=== PATIENT | female | born 2000 | race Caucasian/White ===

== ENCOUNTER → 2021-04-04 08:14 | Outpatient (BNVA) | payer MEDICAID, SELFPAY | PROVIDERS: Family Provider Family Medicine; Visit Provider Nurse Practitioner Women's Health | DX: N92.6 Irregular menstruation, unspecified (principal) | CPT/HCPCS: 81025 ==

== ENCOUNTER → 2021-04-08 13:56 | Outpatient (BNVA) | payer MEDICAID, SELFPAY | PROVIDERS: Family Provider Family Medicine; Visit Provider Nurse Practitioner Women's Health | DX: O20.9 Hemorrhage in early pregnancy, unspecified (principal) | CPT/HCPCS: 84702 ==

== ENCOUNTER → 2021-04-10 09:45 | Outpatient (BNVA) | payer MEDICAID, SELFPAY | PROVIDERS: Family Provider Family Medicine; Visit Provider Nurse Practitioner Women's Health | DX: O20.9 Hemorrhage in early pregnancy, unspecified (principal) | CPT/HCPCS: 84702 ==

== ENCOUNTER 2021-04-11 15:53 | Outpatient (CLI) | payer MEDICAID, SELFPAY ==
--- NOTE | 2021-04-11 15:00 | USR_ITS ---
PROCEDURE INFORMATION: Exam: US , Transvaginal Exam date and time: 04/11/2021 3:00 PM Age: 20 years old Clinical indication: complicated by abdominal or pelvic pain; Left lower quadrant; First trimester; Gestational age or lmp: N/a; ; Additional info: O20.0 - threatened , transvaginal scan only TECHNIQUE: Imaging protocol: Real-time transvaginal obstetrical ultrasound of the maternal pelvis with image documentation. Transvaginal imaging was used for better evaluation of the fetus, adnexa, and/or cervix. COMPARISON: US OB >14 Weeks 85049 09/09/2015 2:56 PM FINDINGS: Gestation: Negative for intrauterine , patient remains at risk for ectopic please correlate clinically. US/US OB transvaginal 61340 IMPRESSION: Negative for intrauterine , patient remains at risk for ectopic please correlate clinically.
[2021-04-11 16:28] LABS: Hematocrit 40.4 % (37.0-47.0); Mean Corpuscular HGB Conc 34.7 g/dL (30.0-36.0); Mean Corpuscular Hemoglobin 29.2 pg (28.0-34.0); Mean Corpuscular Volume 84.3 fL (81-99); Mean Platelet Volume 9.9 fL (7.4-10.4); Platelet Count 247 10^3/cmm (130-400); Red Blood Count 4.79 10^6/uL (4.1-5.3); Red Cell Distribution Width 12.1 % (12.1-15.1); White Blood Count 9.9 10^3/uL (4.0-10.0)
== END 2021-04-11 15:54 | disposition home or self-care (01) ==
PROVIDERS: Visit Provider Nurse Practitioner Women's Health
DX: O20.0 Threatened abortion (principal)
CPT/HCPCS: 76817; 85027; 86850; 86900

== ENCOUNTER → 2021-04-15 11:53 | Outpatient (BNVA) | payer MEDICAID, SELFPAY | PROVIDERS: Visit Provider Nurse Practitioner Women's Health | DX: O20.0 Threatened abortion (principal) | CPT/HCPCS: 84702 ==

== ENCOUNTER → 2021-04-16 13:17 | Outpatient (BNVA) | payer MEDICAID, SELFPAY | PROVIDERS: Visit Provider Obstetrics & Gynecology | DX: O00.90 Unspecified ectopic pregnancy without intrauterine pregnancy (principal); A64 Unspecified sexually transmitted disease | CPT/HCPCS: 80053; 85025; 87491; 87591; 87635 ==

== ENCOUNTER 2021-04-17 07:52 | Day surgery (SDC) | payer MEDICAID, SELFPAY ==
[2021-04-16 15:44] VITALS: BMI 29.0
[2021-04-17] VITALS (11 sets, daily range): BP systolic 105–128; BP diastolic 54–75; PULSE 62–123; RESP 16–18; TEMP 36.1–37.2; O2SAT 93–99
--- NOTE | 2021-04-17 07:40 | P.ANESASSM_ITS ---
Pre-Anesthetic Assessment Pre-Anesthetic Assessment: Height/Weight: Height 1.73 m Weight 86.636 kg Proposed Procedure: Operation Date: 04/17/21 09:00 Proposed Procedures p Laparoscopic partial Salpingectomy 60084 O00.90(Not Applicable) - Zhane English MD Was Beta Jose taken within 24 hours: N/A Was Clonidine taken within 24 hours: N/A Social: Social History: No alcohol and No tobacco Exam: Pre-Anes Outpt Exam: alert, oriented x 3, clear to auscultation bilaterally and regular rate & rhythm Airway: Submandibular: WNL Cervical ROM: WNL MP: 2 History/ROS: No significant history except as noted Pulmonary: Pulmonary: None reported CV/HEM: CV/HEM: None reported : : None reported Hepatic: Hepatic: None reported GI: GI: None reported Metabolic: Metabolic: None reported Musc/skel: Musc/skel: None reported Neuropsych: Neuropsych: None reported Anesthetic Plan: ASA status: 1 Anesthesia: General PFSH Anesthesia PFSH: Medical History No pertinent past medical history Denies diabetes, asthma, hypertension, seizures, DVT/PE PCP: None Surgical History Hx of section X 2 2015 2017---per patient report after second she was told she has a lot of scar tissue. Family History Denies family history of Colon cancer Ovarian cancer Diabetes Heart disease Hypercholesteremia Breast cancer Hypertension Uterine cancer Thyroid disease Stroke Female Reproductive History: Date of last menstrual period: 02/09/21 Data Anesthesia Cardiac Studies: No Data to Display
[2021-04-17] MEDS: sodium chloride 0.9% 1,000 ML 30 ML IV (08:45)
--- NOTE | 2021-04-17 09:37 | W.PM.OPSUD ---
Surgery/Procedure H&P Update DATE OF PROCEDURE: April 17, 2021 DATE H&P PERFORMED: 04/16/21 H&P UPDATE INFORMATION: I have reviewed H&P completed within last 30 days, I have examined patient prior to procedure, No changes to prior documentation and H&P is in [facility] E[facility] on date indicated PREOP DIAGNOSIS: Ectopic PLANNED PROCEDURE: Operation Date: 04/17/21 09:00 Proposed Procedures p Laparoscopic partial Salpingectomy 61118 O00.90(Not Applicable) - Zhane Miller MD
[2021-04-17] MEDS: silver nitrate applicator 1 EACH TOPICAL (11:30)
--- NOTE | 2021-04-17 11:47 | PM.OP ---
Operative Report Date of procedure: April 17, 2021 OPERATIVE REPORT Date of surgery: 04/17/2021 Date of dictation: 04/17/2021 Preoperative diagnosis: Unruptured left ectopic Postoperative diagnosis/findings: unruptured left fimbrial ectopic , dense adhesions of uterus on the anterior abdominal wall, dense omental adhesions 8 weeks size anteverted uterus, adhesions of the left fallopian tube onto pelvic sidewall, adhesions of the right ovary onto ovarian fossa, normal-appearing external right fallopian tube Procedure done: Laparoscopic left salpingectomy with lysis of adhesions. Specimens removed/disposition of specimens: Left fallopian tube with ectopic Surgeon: Dr. Zhane Rod Force Dispatcher: Ceci Weber Anesthesia: General endotracheal tube anesthesia Estimated blood loss: 30 ml Intravenous fluids: 1200 mL of LR Urine output: 200 mL of clear urine at the end of procedure Medications: As per anesthesia records Complications: None, patient was extubated and taken to the recovery room in a stable condition. PROCEDURE: After consents were signed patient was taken to the operating room where she was placed under general anesthesia without any difficulty. She was placed supine on the table in the lithotomy position. Exam under anesthesia revealed findings noted above. She was then prepped and draped in usual sterile fashion. Weighted speculum and anterior wall retractors were placed in the vagina, cervix visualized and grasped with a tenaculum. ZUMI uterine manipulator was placed into the uterus without any difficulty. Catheter was placed, instruments were removed from the vagina and the legs were lowered. Attention was turned towards the abdomen where local anesthetic was injected in to her umbilicus. A 10 mm skin incision was made and a 10 mm port was placed through the umbilicus using an open technique--- fascia was identified and tented up with Denia clamps and directly incised using curved Mayos. Peritoneum was then bluntly entered digitally and palpation revealed adhesions in the lower abdomen but not around site of entry. Rodney trocar was then attached to the fascia and inflated. Once intra-abdominal entry was confirmed gas was turned on and intra-abdominal opening pressure was 2. The abdomen is insufflated to the pressure was 14. Survey of the abdomen revealed dense omental adhesions in the lower abdomen as well as adhesions of the anterior abdominal wall to the uterus. Bladder was also densely adherent onto the uterus. The uterus was almost immobile with these adhesions and was difficult to manipulate even with the ZUMI device.. Unruptured left fimbrial ectopic identified. Right tube appeared normal. Right ovary appeared normal but was adherent to the ovarian fossa. Left ovary was normal. Left fallopian tube was adherent to the pelvic sidewall. Two 5 mm trocar was placed into the left and right lower quadrant under direct visualization after injecting local anesthetic. The cautery device was first used to clamp cauterize and then cut the omental adhesions. About 10 minutes was spent with adhesiolysis. The Voyant device was used to clamp, cauterize and then cut the mesosalpinx under the left fallopian tube starting at the fimbriated end and moving towards the uterus. This was done in a sequential fashion in such a way that the entire fallopian tube including the ectopic was from the sidewall. This was continued to beyond the ectopic site. There was just 1 cm of the fallopian tube left behind near the cornual end of the uterus. Care was taken to stay off the pelvic sidewall to protect the ureter. Site of surgery was irrigated and was noted to be hemostatic with 0 abdominal pressure. Hemostasis was noted at site of surgery and site of adhesiolysis. An Endo Catch bag was inserted through the umbilical port and the tube with ectopic was placed in it. Lateral trochars were removed under direct visualization. The umbilical Rodney trocar was deflated and removed completely along with the Endo Catch bag. The Endo Catch bag was visualized and contents intact and was sent to pathology labeled left fallopian tube with ectopic . Peristalsis of the ureter was noted. No bleeding was noted at sites of surgery.. All instruments removed from the abdomen and the abdomen was desufflated. The fascia on the umbilical port was closed with 0 Vicryl in a continuous fashion and good reapproximation was obtained-care was taken to tent up the fascia throughout the closure. The skin incisions was closed with 4-0 Monocryl in a subcuticular fashion good reapproximation and hemostasis was noted. The incisions were dressed with Steri-Strips Telfa and Tegaderm. The ZUMI and Mark catheter were removed and good hemostasis after silver nitrate use was noted. The patient was extubated without any difficulty and taken to the recovery room in a stable condition. FOLLOW UP: Follow-up in 2 weeks and 6 weeks with surgeon MEDICATION ON DISCHARGE: Colace 100 mg by mouth every 12 hours when necessary constipation, 30 tablets, no refills Ibuprofen 800 mg by mouth every 8 hours when necessary pain, 60 tablets, no refills. [place] 5/325 mg 1 tablet by mouth every 6 hours when necessary pain,25 tablets, no refills Continue other home medication DISPOSITION: Home in a stable condition This documentation was created by [employer]itrack theoretical physicist software (known for inherent theoretical physicist error). Every effort was made to assure accuracy of theoretical physicist. Any obvious errors or omissions should be clarified with the author of the document. Pre-op Diagnosis: Ectopic History History History 3 Term 2 Miscarriages/Ectopic 1 0 Living Children 2 Other History: 3, para 2001 CD x 2 Left fallopian tube ectopic 1 1--> 01/23/2016, male (Rosas) 7lbs 12 oz, 40 weeks gestation,emergency delivery d/t non-reassuring heart tones, no complications with or delivery, delivered by Dr. Fernandez at [facility] in [place], [place]. 2--> 01/31/2018, female (Brittni) 8lbs 3oz, 39 weeks gestation, repeat delivery, no complications with or delivery, delivered at [place], [place]. 3--> 04/2021. Left ectopic [place] with [place] [facility] [place] Dense adhesions of the bladder onto the uterus and the uterus was adherent to the anterior abdominal wall. These adhesions were not taken down. Filmy omental adhesions noted and these were taken down. 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 Status post laparoscopy 04/17/2021---laparoscopic left partial [place] Dr. [place] [facility] Dense adhesions of the bladder onto the uterus and the uterus was adherent to the anterior abdominal wall. Ovary was adherent on the right side ovarian fossa but fallopian tube was normal. Left fallopian tube was adherent to the pelvic sidewall but left ovary was normal. Family History Denies family history of Colon cancer Ovarian cancer Diabetes Heart disease Hypercholesteremia Breast cancer Hypertension Uterine cancer Thyroid disease Stroke Supplemental [facility] Information - Tobacco Use: Started smoking at age 12 and currently smokes one pack per day. 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 [facility] Appointment: Never per patient Other Female Reproductive History Menstrual History Comment: Menarche at the age of 10 with regular 30-day cycles lasting for 7 days. Sexual History Sexual History Comment: Coitarche at age 10, more than 5 lifetime partners, has been with current partner, Luan, since 01/2020. STD History Comment: Denies STDs, incuding herpes or partner with herpes Contraception Contraception History Comment: Patient has used oral contraceptives, Nexplanon and Depo Provera in the past for contraception. She used the Nexplanon from the of her last child in 2017 until January 2021 when she removed it after 3 years. She states that she used control pills for about 1 month but had nipple discharge and thought she was so she stopped taking it. She had a cycle in 02/2021----got after that ----We will talk about contraception after dealing with this
[2021-04-17] MEDS: fentaNYL 50 mcg/mL INJ 2mL IVP (11:52)
[2021-04-17] MEDS: HYDROmorphone 1 mg/mL INJ 1 mL 0.5 MG IVP (11:57)
[2021-04-17] MEDS: HYDROcodone-acetaminophen 5-325 mg Tablet 1 TAB PO (13:20)
--- NOTE | 2021-04-17 15:09 | ANE.PACU2 ---
Inpatient post-anesthesia follow up: Airway intact: Yes Vital signs: Temperature 97 F Pulse Rate 66 Respiratory Rate 18 Blood Pressure 116/54 Pulse Oximetry 98 Oxygen Delivery Me thod Room Air Oxygen Flow Rate Fraction of Inspir ed Oxygen Hydration adequate: Yes Nausea and vomiting: No Pain level: 4 Mental status: Baseline
== END 2021-04-17 13:45 | disposition home or self-care (01) ==
PROVIDERS: Visit Provider Obstetrics & Gynecology
PROC: (CPT 58661; principal; 2021-04-17 09:00)
DX: O00.102 Left tubal pregnancy without intrauterine pregnancy (principal); Z3A.00 Weeks of gestation of pregnancy not specified
CPT/HCPCS: 59151; 36415; 86850; 86900; 88305; J1100; J1170; J2405; J2704; J2710; J3010; J3490; J7030

== ENCOUNTER 2022-05-28 05:09 | Inpatient (IN) | payer MEDICAID, SELFPAY ==
--- NOTE | 2022-05-13 10:27 | ANES.PREANE2 ---
Pre-Anesthetic Assessment Height/Weight: Height 1.73 m Preop Diagnosis: Ectopic Operation Date: 05/28/22 07:00 Proposed Procedures p Section Repeat(Not Applicable) - Aaron Hensley MD Familial anesthetic complications: None Was Beta Jose taken within 24 hours: N/A Was Clonidine taken within 24 hours: N/A Social Tobacco and No alcohol Exam alert, oriented x 3 and regular rate & rhythm Airway Submandibular: within normal limits Cervical ROM: within normal limits Mallampati: Class II Dentition: chipped Comments: Comments: Poor dentition, multiple caries Anesthetic Plan ASA status: 2 Anesthesia: Regional (specify below) (SAB) Medications/Allergies Home Medications Medication Instructions Recorded Confirmed Last Taken Type docusate sodium 100 mg capsule 100 mg PO BID PRN constipation #30 04/17/21 Unknown Rx caps hydrocodone 5 mg-acetaminophen 325 1 tab PO Q6H pain #25 tabs 04/17/21 Unknown Rx mg tablet ibuprofen 800 mg tablet 800 mg PO Q8H pain #30 tabs 04/17/21 Unknown Rx Allergies Allergy/AdvReac Type Severity Reaction Status Date / Time amoxicillin Allergy Severe throat Verified 04/16/21 12:19 swelling--never tried Keflex Penicillins Allergy Severe throat Verified 04/15/21 12:05 swelling PFSH Anesthesia Medical History (Updated 04/17/21 @ 11:55 by Zhane Miller MD) History of ectopic 2020 treated with salpingectomy No pertinent past medical history Denies diabetes, asthma, hypertension, seizures, DVT/PE PCP: None Surgical History (Updated 04/17/21 @ 11:55 by Zhane Miller MD) Hx of section X 2 2015 2017---per patient report after second she was told she has a lot of scar tissue. Status post laparoscopy 04/17/2021---laparoscopic left partial salpingectomy by Dr. Rod at [facility] [place]. Dense adhesions of the bladder onto the uterus and the uterus was adherent to the anterior abdominal wall. Ovary was adherent on the right side ovarian fossa but fallopian tube was normal. Left fallopian tube was adherent to the pelvic sidewall but left ovary was normal. Family History Denies family history of Colon cancer Ovarian cancer Diabetes Heart disease Hypercholesteremia Breast cancer Hypertension Uterine cancer Thyroid disease Stroke Female Reproductive History Date of last menstrual period: 02/09/21 Data Anesthesia Cardiac Studies: No Data to Display
[2022-05-28] VITALS (103 sets, daily range): BP systolic 96–131; BP diastolic 51–77; PULSE 51–109; RESP 16–18; TEMP 36.2–36.8; O2SAT 89–100; BMI 30.7
[2022-05-28 05:36] LABS: Basophils % 0.3 %; Eosinophils # 0.3 10^3/uL (0.0-0.8); Eosinophils % 1.7 %; Hematocrit 34.3 % (37.0-47.0); Hemoglobin 11.5 g/dL (11.5-15.3); Lymphocytes % 20.2 %; Mean Corpuscular HGB Conc 33.5 g/dL (30.0-36.0); Mean Corpuscular Hemoglobin 29.3 pg (28.0-34.0); Mean Corpuscular Volume 87.5 fl (81-99); Mean Platelet Volume 9.3 fL (7.4-10.4); Monocytes # 0.7 10^3/uL (0.2-0.9); Monocytes % 4.9 %; Neutrophils # 10.69 10^3/uL (1.8-7.7); Nucleated Red Blood Cells % 0 %; Platelet Count 259 10^3/cmm (130-400); Red Blood Count 3.92 10^6/uL (4.1-5.3); Red Cell Distribution Width 14.3 % (12.1-15.1); White Blood Count 14.8 10^3/uL (4.0-10.0)
[2022-05-28] MEDS: lactated ringers 1,000 ML 999 ML IV (05:38)
[2022-05-28] MEDS: famotidine 20 mg/2 mL INJ IVP (06:54)
[2022-05-28] MEDS: citric acid-sodium citrate 30 mL UDC PO (06:54)
[2022-05-28] MEDS: metoclopramide 5 mg/mL SDV 2 mL 10 MG IVP (06:54)
--- NOTE | 2022-05-28 06:55 | P.HPUD_ITS ---
Labor & Delivery H&P Update Date of Procedure: May 28, 2022 Date H&P Performed: 05/19/22 Changes to previous documentation: None Admission Diagnosis: 4 para 2-0-1-2 with an estimated gestational age of 39 weeks presenting for a repeat section Preop diagnosis: Ectopic Planned procedure: Operation Date: 05/28/22 07:00 Proposed Procedures p Section Repeat(Not Applicable) - Aaron Hensley MD Related Problem List Diagnoses (1) Hx of section: (2) 39 weeks gestation of : A&P Assessment and plan (1) Hx of section: We discussed options, and the patient would like to proceed with a section. We discussed the risks of bleeding, infection, and damage to intra- abdominal organs. She had no further questions Status: Acute X 2 2015 2017---per patient report after second she was told she has a lot of scar tissue. (2) 39 weeks gestation of : Status: Acute
[2022-05-28] MEDS: gentamicin inj 140 MG in sodium chloride 0.9% (100 ml) 100 ML 103.5 MG IV (07:04)
[2022-05-28] MEDS: clindamycin 900 MG/50 ML PREMIX 100 MG IV (07:04)
--- NOTE | 2022-05-28 07:57 | XR_ITS ---
WS: [id number], AP portable supine, 05/28/2022 Clinical Data: incorrect counts in surgery Comparison: None. Findings: No abnormal intraabdominal masses or calcifications are seen. There is no dilatated small bowel or ev idence of obstruction. No abnormal radiopaque foreign body is noted. There are transverse surgical nita across the pelvis . The upper abdomen is not included on the examination. There is a moderate amount of fecal material throughout the colon. XR/XR abdomen 1V* [id number] Impression: Negative for radiopaque foreign body in the lower abdomen and pelvis.
--- NOTE | 2022-05-28 08:02 | P.ANESASSM_ITS ---
Pre-Anesthetic Assessment Height/Weight: Height 1.73 m Weight 91.626 kg Pulse Resp BP O2 Del Method 88 16 109/63 05/28/22 06:33 05/28/22 05:21 05/28/22 06:33 05/28/22 05:16 Preop Diagnosis: Ectopic Operation Date: 05/28/22 07:00 Proposed Procedures p Section Repeat(Not Applicable) - Aaron Hensley MD Familial anesthetic complications: none Was Beta Jose taken within 24 hours: N/A Was Clonidine taken within 24 hours: N/A Social Tobacco and No alcohol Exam alert, oriented x 3 and regular rate & rhythm Airway Submandibular: within normal limits Cervical ROM: within normal limits Mallampati: Class II Dentition: chipped Comments: Comments: Very poor dentition, multiple caries and chipped Anesthetic Plan ASA status: 2 Anesthesia: Regional (specify below) (SAB) Medications/Allergies Home Medications Medication Instructions Recorded Confirmed Last Taken Type Pepcid 05/28/22 05/27/22 History 05/28/22 05/26/22 History Allergies Allergy/AdvReac Type Severity Reaction Status Date / Time amoxicillin Allergy Severe throat Verified 04/16/21 12:19 swelling--never tried Keflex Penicillins Allergy Severe throat Verified 04/15/21 12:05 swelling [facility] Anesthesia Medical History (Updated 05/28/22 @ 07:00 by Aaron Hensley MD) History of ectopic 2020 treated with salpingectomy No pertinent past medical history Denies diabetes, asthma, hypertension, seizures, DVT/PE PCP: None Surgical History (Updated 05/28/22 @ 07:00 by Aaron Hensley MD) Hx of section X 2 2015 2017---per patient report after second she was told she has a lot of scar tissue. Status post laparoscopy 04/17/2021---laparoscopic left partial salpingectomy by Dr. Rod at [facility] [place]. Dense adhesions of the bladder onto the uterus and the uterus was adherent to the anterior abdominal wall. Ovary was adherent on the right side ovarian fossa but fallopian tube was normal. Left fallopian tube was adherent to the pelvic sidewall but left ovary was normal. Family History Denies family history of Colon cancer Ovarian cancer Diabetes Heart disease Hypercholesteremia Breast cancer Hypertension Uterine cancer Thyroid disease Stroke Female Reproductive History Date of last menstrual period: 02/09/21 : 4 Data Anesthesia : 05/28/22 05:25 Short CBC 05/28/22 Range/Units 05:25 WBC 14.8 H (4.0-10.0) 10^3/uL Hgb 11.5 (11.5-15.3) g/dL Hct 34.3 L (37.0-47.0) % MCV 87.5 (81-99) fl Plt Count 259 (130-400) 10^3/cmm Neut % (Auto) 72.0 % Neut # (Auto) 10.69 H (1.8-7.7) 10^3/uL Blood Bank 05/28/22 05:25 Blood Type O Positive Rho(D) Type Positive Antibody Screen Negative Cardiac Studies: No Data to Display
--- NOTE | 2022-05-28 08:19 | P.OP_ITS ---
Operative Report Date of procedure: May 28, 2022 Pre-op diagnosis: Preop Diagnosis previous section desiring repeat Post-op diagnosis: Same Procedure done: Transverse section Specimens removed/disposition: 1. Female infant with Apgars of 8 and 9 and a weight of 6 pounds 8 ounces 2. Placenta with a three-vessel cord delivered intact Surgeon: Aaron Hensley Anesthesia: Other (Spinal) Estimated blood loss (mL): 500 Complications: None Condition: stable Procedure: The patient was brought back to the operating room where she was prepped and draped in usual sterile fashion. Anesthesia was found to be adequate. A lower transverse skin incision was then made with a #10 blade. I then dissected down to the underlying subcutaneous tissue until arriving at the prerectal fascia. The fascia was then nicked with the scalpel bilaterally. The fascial incisions were then carried laterally with Tao scissors. Attention was then turned to the superior aspect of the incision which was grasped with kochers and tented up away from the underlying rectus abdominis muscles. The muscles were then dissected away from the fascia manually, and later with Tao scissors. Attention was then turned to the inferior aspect of the incision, and the fascia was dissected away from the underlying muscle in similar fashion. The rectus abdominis muscles were then spread manually. The peritoneum was entered manually. Excellent visualization of the uterus was noted. A lower transverse uterine incision was then made with a #10 blade. Upon arriving at the intrauterine cavity, the uterine incision was then extended manually. The was noted to be in vertex position. The baby was delivered without difficulty. After delivery of the head, the mouth and nose were suctioned at the site of the incision. There was no meconium. There was no nuchal cord. The remainder of the body was then delivered and placed on the abdomen. The cord was cut and clamped. The baby was then handed to the waiting nurse. The placenta was removed intact. Because of extensive intraperitoneal scar tissue, I decided not to externalize the uterus. The intrauterine cavity was cleansed of any remaining debris. The uterine incision was reapproximated in 2 layers. The first layer was performed with 0 Vicryl in a running locked stitch. The second layer was an imbricating stitch also using 0 Vicryl. The uterus was replaced into the abdomen. The peritoneum was then irrigated with warm saline. I reexamined the uterine incision and found it to be hemostatic. The fascia was then reapproximated using 0 Vicryl in running stitch. The subcutaneous tissue was reapproximated using 0 Vicryl in a running stitch. The skin was reapproximated using nita. A sterile dressing was placed. All counts were correct x2. Bot h the mother and baby were in stable condition.
--- NOTE | 2022-05-28 12:38 | ANE.PACU2 ---
Inpatient post-anesthesia follow up: Airway intact: Yes Vital signs: Temperature 97.2 F Pulse Rate 81 Respiratory Rate 16 Blood Pressure 108/55 Pulse Oximetry 98 Oxygen Delivery Me thod Room Air Oxygen Flow Rate Fraction of Inspir ed Oxygen Hydration adequate: Yes Nausea and vomiting: No Pain level: 1 Mental status: Baseline
[2022-05-28] MEDS: dextrose 5%-lactated ringers 1,000 ML 125 ML IV (14:42)
[2022-05-28] MEDS: ketorolac 30 mg/mL INJ IVP ×2 (14:42→20:10)
[2022-05-28] MEDS: docusate sodium 100 mg Capsule PO (20:10)
[2022-05-28 20:41] LABS: Hematocrit 30.1 % (37.0-47.0); Hemoglobin 10.5 g/dL (11.5-15.3); Mean Corpuscular HGB Conc 34.9 g/dL (30.0-36.0); Mean Corpuscular Hemoglobin 29.5 pg (28.0-34.0); Mean Corpuscular Volume 84.6 fl (81-99); Mean Platelet Volume 9.4 fL (7.4-10.4); Platelet Count 208 10^3/cmm (130-400); Red Blood Count 3.56 10^6/uL (4.1-5.3); White Blood Count 15.4 10^3/uL (4.0-10.0)
[2022-05-29 01:29] VITALS: BP 103/55; PULSE 81; TEMP 36.8
[2022-05-29] MEDS: ketorolac 30 mg/mL INJ IVP ×2 (03:29→08:12)
--- NOTE | 2022-05-29 04:12 | PM.OBGYDC ---
Discharge Providers HANDKERCHIEF FOLDER Date of Admission: 05/28/22 05:09 Date of Discharge: 05/29/22 Attending Provider at Admission: aAron Hensley MD Attending Provider at Discharge: Aaron Hensley MD Primary Care Provider: Aaron Hensley MD Diagnoses at Discharge Discharge Diagnosis (1) Hx of section: Status: Acute Permanent problem details: X 2 2015 2017---per patient report after second she was told she has a lot of scar tissue. (2) 39 weeks gestation of : Status: Acute Reason for Visit Reason for Visit: edc 05/30/22 Anesthesia consult Hospital Course Hospital Course The patient presented to the hospital for a repeat section. The was unremarkable other than previously noted scar tissue. Her course was unremarkable. Her bleeding was within normal limits. She breast-fed well. She was passing flatus the same day as her surgery. As result her diet was advanced and she tolerated it without any difficulty Information Peripartum Data: Delivery Method: Physical Exam Narrative: She is in no acute distress Lungs are clear auscultation bilaterally Her heart has a regular rate and rhythm Her fundus is below the umbilicus and firm Her dressing is clean, dry and intact Her extremities have trace edema Urinary Catheter Management: Mark Latex: Cath Placed During This Visit: yes, but has since been removed by the nurse Reason for Continuing Indwelling Catheter: Decision to DC Catheter Urinary Catheter Date of Insertion: 05/28/22 Urinary Catheter Time of Insertion: 07:17 Date Urinary Catheter Removed: 05/28/22 Time Urinary Catheter Discontinued: 17:00 History History History 3 Term 2 0 Miscarriages/Ectopic 1 Living Children 2 Discharge Data Studies Completed and Pending Completed Studies During Hospitalization Category Date Time Status XR abdomen 1V* [id number] Stat Exams 05/28/22 07:57 Completed Radiology Impressions Abdomen X-Ray 05/28/22 07:57 Impression: Negative for radiopaque foreign body in the lower abdomen and pelvis. Laboratory Results WBC 15.4 10^3/uL (4.0-10.0) H 05/28/22 20:25 RBC 3.56 10^6/uL (4.1-5.3) L 05/28/22 20:25 Hgb 10.5 g/dL (11.5-15.3) L 05/28/22 20:25 Hct 30.1 % (37.0-47.0) L 05/28/22 20:25 MCV 84.6 fl (81-99) 05/28/22 20:25 MCH 29.5 pg (28.0-34.0) 05/28/22 20:25 MCHC 34.9 g/dL (30.0-36.0) 05/28/22 20:25 RDW 14.0 % (12.1-15.1) 05/28/22 20:25 Plt Count 208 10^3/cmm (130-400) 05/28/22 20:25 MPV 9.4 fL (7.4-10.4) 05/28/22 20:25 Neut % (Auto) 72.0 % 05/28/22 05:25 Lymph % (Auto) 20.2 % 05/28/22 05:25 [place] % (Auto) 4.9 % 05/28/22 05:25 Eos % (Auto) 1.7 % 05/28/22 05:25 Baso % (Auto) 0.3 % 05/28/22 05:25 Neut # (Auto) 10.69 10^3/uL (1.8-7.7) H 05/28/22 05:25 Lymph # (Auto) 3.0 10^3/uL (0.8-4.8) 05/28/22 05:25 [place] # (Auto) 0.7 10^3/uL (0.2-0.9) 05/28/22 05:25 Eos # (Auto) 0.3 10^3/uL (0.0-0.8) 05/28/22 05:25 Baso # (Auto) 0.0 10^3/uL (0.0-0.1) 05/28/22 05:25 Nucleated RBC % (auto) 0 % 05/28/22 05:25 Nucleated RBCs # 0.0 /100WBC 05/28/22 05:25 Blood Type O Positive 05/28/22 05:25 Rho(D) Type Positive 05/28/22 05:25 Antibody Screen Negative 05/28/22 05:25 Vitals Last Vital Signs Temp 98.2 F 05/29/22 01:29 Pulse 81 05/29/22 01:29 Resp 16 05/28/22 10:00 BP 103/55 05/29/22 01:29 Pulse Ox 96 05/28/22 15:15 O2 Del Method 05/28/22 08:48 Discharge Plan Discharge Patient Disposition: Home Condition: Stable Prescriptions: New ibuprofen 800 mg Tablet 800 mg PO TID Qty: 45 0RF hydrocodone-acetaminophen 5-325 mg Tablet 1 tab PO Q6H PRN (Reason: Moderate To Severe Pain) Qty: 28 0RF docusate sodium 100 mg Capsule 100 mg PO BID Qty: 20 0RF Continued Discontinued Pepcid Discharge Orders: Discharge Order (Routine); Ordered 05/29/22 Ordered By: Aaron Hensley Referrals: Aaron Hensley MD [Primary Care Provider] - 4-7 days (Please set up 6-week follow-up as well.) Discharge Diet: Usual diet Discharge Activity: Limit activity as instructed Patient Instructions: Depression (DC), Bleeding (DC), Preeclampsia and Eclampsia After Delivery (GEN), Hemorrhage (DC), OB - Ayden/Fei, OB Discharge Report, OB Food/Drug Interaction Guide, OB Care at Home, Opioid Safety, OB Home Care Discharge Attestations HANDKERCHIEF FOLDER Time Spent in Discharge Care*: less than 30 min Coding Level of Care Code Acute Car Porter for Chg Fwd Diagnoses Hx of section Z98.891 39 weeks gestation of Z3A.39
[2022-05-29] MEDS: docusate sodium 100 mg Capsule PO (08:13)
[2022-05-29] MEDS: prenatal vitamin Capsule 1 CAP PO (08:13)
[2022-05-29 10:00] VITALS: RESP 18
[2022-05-29 10:45] VITALS: RESP 18
== END 2022-05-29 10:50 | disposition home or self-care (01) | DRG 788 ==
PROVIDERS: Admitting Provider Family Medicine; PCP Family Medicine; Visit Provider Family Medicine
PROC: 10D00Z1 Extraction of Products of Conception, Low, Open Approach (ICD-10-PCS; CPT 59514; principal; 2022-05-28 07:00)
DX: O34.219 Maternal care for unspecified type scar from previous cesarean delivery (principal); Z3A.39 39 weeks gestation of pregnancy; Z37.0 Single live birth
CPT/HCPCS: 12345; 36415; 51702; 59409; 74018; 85025; 85027; 86850; 86900; J1580; J1885; J2274; J2370; J2405; J2765; J3490

== ENCOUNTER 2024-04-04 14:46 | Emergency (ER) | payer MEDICAID, SELFPAY ==
--- NOTE | 2024-04-04 14:51 | US_ITS ---
WS: [id number] Exam: US OB <= 14 weeks fetus [id number] Date/Time of Exam: 04/04/2024 2:58 PM Reason For Exam: threatened miscarriage No gestational sac or pole identified in the uterus. The uterus measures 7.5 x 4.3 x 5 cm. Endo metrial thickness is 8 mm. The RIGHT and LEFT ovaries are identified and are unremarkable. Both ovari es demonstrate satisfactory blood flow with color flow Doppler. The RIGHT ovary measures 3.67 x 1.4 x 1.8 cm. The LEFT ovary measures 2.17 x 2 x 3.2 cm. No adnexal mass or abnormal free fluid collection . US/US OB <= 14 weeks fetus [id number] IMPRESSION: 1. No gestational sac or pole identified in the uterus. 2. The ovaries are unremarkable and demonstrate normal perfusion. 3. No adnexal mass or abnormal fluid collection in the pelvis. 4. This exam would not exclude the possibility of ectopic .
[2024-04-04 14:54] VITALS: BP 131/82; PULSE 97; RESP 16; TEMP 36.6; O2SAT 98
[2024-04-04 15:46] LABS: Basophils % 0.3 %; Eosinophils # 0.2 10^3/uL (0.0-0.8); Eosinophils % 2.1 %; Hematocrit 39.8 % (36-47); Lymphocytes # 1.9 10^3/uL (0.8-4.8); Lymphocytes % 21.9 %; Mean Corpuscular HGB Conc 34.4 g/dL (30-55); Mean Corpuscular Hemoglobin 29.7 pg (27-33); Mean Corpuscular Volume 86.1 fl (85-98); Mean Platelet Volume 9.8 fL (7.4-10.4); Monocytes # 0.4 10^3/uL (0.2-0.9); Monocytes % 4.1 %; Neutrophils # 6.32 10^3/uL (1.8-7.7); Neutrophils % 71.4 %; Nucleated Red Blood Cells % 0 %; Platelet Count 250 10^3/cmm (157-399); Red Blood Count 4.62 10^6/uL (3.85-5.65); Red Cell Distribution Width 12.7 % (12.1-15.1); White Blood Count 8.86 10^3/uL (3.29-11.43)
[2024-04-04 16:22] LABS: Anion Gap 15.9 (5-19); Blood Urea Nitrogen 7 mg/dL (6-20); Carbon Dioxide 21 mmol/L (22-29); Chloride 104 mmol/L (98-107); Glomerular Filtration Rate 102.8 mL/min (90-130); Glucose 102 mg/dL (65-115); Osmolality Calculated 282 mOsm/kg (285-295); Potassium 3.9 mmol/L (3.5-5.1); Sodium 137 mmol/L (136-145)
[2024-04-04 16:29] VITALS: BP 142/72; PULSE 89; RESP 14; O2SAT 98
--- NOTE | 2024-04-04 16:47 | W.ED.PREGNAN ---
HPI - General: Chief complaint: Vaginal Bleeding Stated complaint: 6 weeks preg, abd pain, vaginal bleeding Time Seen by Provider: 04/04/24 16:12 History of Present Illness: 23-year-old female who presents emergency room with vaginal bleeding and cramping. She had some right-sided abdominal pain that she thought was just gas earlier but then she had some bleeding and so she became worried and came to the emergency room. She has now pain has resolved. Bleeding has resolved as well. Review of Systems Narrative: Constitutional symptoms: Negative except as documented in HPI. Skin symptoms: Negative except as documented in HPI. Eye symptoms: Negative except as documented in HPI. ENMT symptoms: Negative except as documented in HPI. Respiratory symptoms: Negative except as documented in HPI. Cardiovascular symptoms: Negative except as documented in HPI. Gastrointestinal symptoms: Negative except as documented in HPI. Genitourinary symptoms: Negative except as documented in HPI. Musculoskeletal symptoms: Negative except as documented in HPI. Neurologic symptoms: Negative except as documented in HPI. Psychiatric symptoms: Negative except as documented in HPI. Endocrine symptoms: Negative except as documented in HPI. [facility] ED PFSH: Medical History (Updated 05/30/22 @ 00:01 by SUNG Foy) History of ectopic 2020 treated with salpingectomy No pertinent past medical history Denies diabetes, asthma, hypertension, seizures, DVT/PE PCP: None Surgical History (Updated 05/30/22 @ 00:01 by SUNG Foy) Status post laparoscopy 04/17/2021---laparoscopic left partial salpingectomy by Dr. Rod at [facility]. Dense adhesions of the bladder onto the uterus and the uterus was adherent to the anterior abdominal wall. Ovary was adherent on the right side ovarian fossa but fallopian tube was normal. Left fallopian tube was adherent to the pelvic sidewall but left ovary was normal. Hx of section X 2 2015 2017---per patient report after second she was told she has a lot of scar tissue. Family History Denies family history of Colon cancer Ovarian cancer Diabetes Heart disease Hypercholesteremia Breast cancer Hypertension Uterine cancer Thyroid disease Stroke Physical Exam Narrative: EXAM NARRATIVE: General: Alert, no acute distress. Skin: Warm, dry. Head: Normocephalic, atraumatic. Neck: Supple, trachea midline. Eye: Extraocular movements are intact. Ears, nose, mouth and throat: mucosa moist. Cardiovascular: Regular, Normal peripheral perfusion. Respiratory: Lungs are clear to auscultation, respirations are non-labored, breath sounds are equal, Symmetrical chest wall expansion. Gastrointestinal: Soft, Nontender, Non distended Musculoskeletal: Normal ROM, no deformity. Neurological: Alert and oriented, No focal neurological deficit observed. Psychiatric: Cooperative, appropriate mood & affect. Course Vital Signs: Vital signs: Vital Signs Temperature 97.9 F 04/04/24 14:54 Pulse Rate 89 04/04/24 16:29 Respiratory Rate 14 04/04/24 16:29 Blood Pressure 142/72 04/04/24 16:29 Pulse Oximetry 98 04/04/24 16:29 Oxygen Delivery Me thod Room Air 04/04/24 14:54 MDM - OB/Uterine Contractions Medical Decision Making Medical decision making: Differential diagnosis including but not limited to and based on the above HPI, review of systems and physical exam: for patient in early with vaginal bleeding and abdominal pain: Spontaneous , threatened . Urinary tract infection. ectopic . Orders placed to evaluate differential diagnosis based on the above differential, HPI and physical exam Lab Review: Laboratory results were reviewed and interpreted by myself the emergency room physician. Review of old blood bank show she is a positive. RhoGAM not needed. No anemia. Beta-hCG is only around 600 which would indicate given her ultrasound either an extremely early or an early miscarriage. Ultrasound of the pelvis: No evidence of ectopic . No evidence of in the uterus. This was reviewed and interpreted by myself the emergency room physician. I also reviewed the radiology report. I reviewed the patient's medical record. Assessment and plan: Threatened miscarriage -Patient has establish care with a scuba diving teacher. We discussed that she needs to have repeat hCG and possibly repeat ultrasound in the next 5 to 7 days and to return the emergency room with pain returns or is worse - Discharged home - Discussed findings and plan with patient. Answered any questions. - All laboratory values were reviewed and interpreted personally by myself, the ER physician - All imaging was reviewed and interpreted personally by myself, the ER physician. - Evaluation and treatment of this problem were appropriate in the emergency setting Lab Data 04/04/24 15:29 04/04/24 15:29 Radiology Impressions Ultrasound 04/04/24 14:51 IMPRESSION: 1. No gestational sac or pole identified in the uterus. 2. The ovaries are unremarkable and demonstrate normal perfusion. 3. No adnexal mass or abnormal fluid collection in the pelvis. 4. This exam would not exclude the possibility of ectopic . Laboratory Results WBC 8.86 10^3/uL (3.29-11.43) 04/04/24 15: RBC 4.62 10^6/uL (3.85-5.65) 04/04/24 15: Hgb 13.70 g/dL (11.27-16.99) 04/04/24 15: Hct 39.8 % (36-47) 04/04/24 15: MCV 86.1 fl (85-98) 04/04/24 15: MCH 29.7 pg (27-33) 04/04/24: MCHC 34.4 g/dL (30-55) 04/04/24: RDW 12.7 % (12.1-15.1) 04/04/24 15: Plt Count 250 10^3/cmm (157-399) 04/04/24 15: MPV 9.8 fL (7.4-10.4) 04/04/24 15: Neut % (Auto) 71.4 % 04/04/24 15: Lymph % (Auto) 21.9 % 04/04/24: [place] % (Auto) 4.1 % 04/04/24: Eos % (Auto) 2.1 % 04/04/24: Baso % (Auto) 0.3 % 04/04/24 15:29 Neut # (Auto) 6.32 10^3/uL (1.8-7.7) 04/04/24: Lymph # (Auto) 1.9 10^3/uL (0.8-4.8) 04/04/24: [place] # (Auto) 0.4 10^3/uL (0.2-0.9) 04/04/24 15: Eos # (Auto) 0.2 10^3/uL (0.0-0.8) 04/04/24: Baso # (Auto) 0.0 10^3/uL (0.0-0.1) 04/04/24 15:29 Nucleated RBC % (auto) 0 % 04/04/24 15:29 Nucleated RBCs # 0.0 /100WBC 04/04/24 15:29 Sodium 137 mmol/L (136-145) 04/04/24 15:29 Potassium 3.9 mmol/L (3.5-5.1) 04/04/24 15:29 Chloride 104 mmol/L (98-107) 04/04/24 15:29 Carbon Dioxide 21 mmol/L (22-29) L 04/04/24 15:29 Anion Gap 15.9 (5-19) 04/04/24 15:29 BUN 7 mg/dL (6-20) 04/04/24 15: Creatinine 0.7 mg/dL (0.5-0.9) 04/04/24 15:29 GFR Calculation 102.8 mL/min (90-130) 04/04/24 15: Glucose 102 mg/dL (65-115) 04/04/24 15:29 Calculated Osmolality 282 mOsm/kg (285-295) L 04/04/24 15:29 Calcium 9.0 mg/dL (8.5-10.5) 04/04/24 15:29 Ser , Semi-Qnt 505.40 mIU/mL 04/04/24 15:29 All radiology interpretation(s) finalized by discharge Discharge Plan Discharge Patient Disposition: Home Condition: Stable Prescriptions: No Action ibuprofen 800 mg Tablet 800 mg PO TID Qty: 45 0RF hydrocodone-acetaminophen 5-325 mg Tablet 1 tab PO Q6H PRN (Reason: Moderate To Severe Pain) Qty: 28 0RF docusate sodium 100 mg Capsule 100 mg PO BID Qty: 20 0RF Discharge Orders: Discharge ED (Routine); Ordered 04/04/24 Ordered By: Priscilla Gonzales Referrals: Aaron Hensley MD [Primary Care Provider] - 4-7 days Discharge Diet: Usual diet Discharge Activity: Increase activity as tolerated Patient Instructions: Threatened Miscarriage (ED) Activity Restrictions/Additional Instructions: Return to the emergency room or follow-up with your property and casualty insurance agent if you have worsening pain or bleeding. Thank you for choosing [facility] for your healthcare needs today. Please realize this is an emergency room and that we are providing you with a medical screening exam and this may not be complete and all inclusive of all the testing and or work up that you may need to determine your ailment or severity of your illness. You have been screened and evaluated and felt safe for discharge. Health conditions do change or evolve sometimes and as such it is important that you follow up with your Primary Doctor to be re checked, 3-5 days is a general good time frame for follow up. You are always welcome to return to the ED for re assessment if your symptoms are worsening or you have new concerns Coding Level of Care Code ED Anthropologist for Candie Dhillon
[2024-04-04 16:59] VITALS: BP 118/64; PULSE 97; RESP 14; O2SAT 99
== END 2024-04-04 17:06 | disposition home or self-care (01) ==
PROVIDERS: Emergency Medicine; Emergency Provider Emergency Medicine; PCP Family Medicine
DX: O20.9 Hemorrhage in early pregnancy, unspecified (principal); Z3A.01 Less than 8 weeks gestation of pregnancy
CPT/HCPCS: 36415; 76801; 80048; 84702; 85025; 99284

== ENCOUNTER 2024-08-17 20:00 | Emergency (ER) | payer MEDICAID, SELFPAY ==
[2024-08-17 20:02] VITALS: BP 123/77; PULSE 115; RESP 16; TEMP 36.8; O2SAT 100; BMI 28.8
[2024-08-17 20:27] LABS: Basophils % 0.3 %; Eosinophils # 0.3 10^3/uL (0.0-0.8); Eosinophils % 2.4 %; Hematocrit 40.3 % (36-47); Lymphocytes # 2.5 10^3/uL (0.8-4.8); Lymphocytes % 23.4 %; Mean Corpuscular HGB Conc 33.7 g/dL (30-55); Mean Corpuscular Hemoglobin 29.2 pg (27-33); Mean Corpuscular Volume 86.5 fl (85-98); Mean Platelet Volume 9.6 fL (7.4-10.4); Monocytes # 0.6 10^3/uL (0.2-0.9); Monocytes % 5.2 %; Neutrophils # 7.28 10^3/uL (1.8-7.7); Neutrophils % 68.5 %; Nucleated Red Blood Cells % 0 %; Platelet Count 249 10^3/cmm (157-399); Red Blood Count 4.66 10^6/uL (3.85-5.65); Red Cell Distribution Width 13.3 % (12.1-15.1); White Blood Count 10.61 10^3/uL (3.29-11.43)
[2024-08-17 20:36] LABS: Bilirubin Urine Negative (Negative); Blood Urine Negative (Negative); Glucose Urine UA Negative (Normal); Ketones Urine Negative (Negative); Leukocyte Esterase Urine Negative (Negative); Nitrate Urine Negative (Negative); Protein Urine Negative (Negative); Specific Gravity, Urine 1.008 (1.005-1.030); Urine Appearance Cloudy (CLEAR); Urine Color Yellow (Yellow)
[2024-08-17 20:38] LABS: Bacteria Urine None Seen /hpf; Hyaline Casts Urine 0-4 /lpf; Squamous Epithelial Cell Urine 0-5 /hpf (0-5); WBC Urine 0-5 /hpf (0-5)
[2024-08-17 20:55] LABS: Alanine Aminotransferase 10 U/L (0-33); Albumin Level 4.2 g/dL (3.5-5.2); Alkaline Phosphatase 89 U/L (35-105); Anion Gap 13.9 (5-19); Aspartate Amino Transferase 12 U/L (0-32); Blood Urea Nitrogen 8 mg/dL (6-20); Calcium 8.6 mg/dL (8.5-10.5); Carbon Dioxide 22 mmol/L (22-29); Chloride 103 mmol/L (98-107); Creatinine Clr Calc Pharmacy 166.1894; Globulin 2.3 g/dL (1.3-4.6); Glomerular Filtration Rate 122.8 mL/min (90-130); Glucose 114 mg/dL (65-115); Osmolality Calculated 279 mOsm/kg (285-295); Potassium 3.9 mmol/L (3.5-5.1); Sodium 135 mmol/L (136-145); Total Bilirubin 0.2 mg/dL (0.15-1.2); Total Protein 6.5 g/dL (6.6-8.7)
--- NOTE | 2024-08-17 21:20 | USR_ITS ---
PROCEDURE INFORMATION: Exam: US First Trimester, Transabdominal and US , Transvaginal Exam date and time: 08/17/2024 9:37 PM Age: 23 years old Clinical indication: Lmp or gestational age (in weeks): 6w 3d by lmp; Antepartum complications; Bleeding; ; Prior surgery; Surgery date: 6+ months; Surgery type: Left partial salpingectomy 2020 for ectopic; Patient HX: [id number]-l3; Additional info: Hcg >8000, bleeding, HX of ectopic LABS AND CLINICAL REPORTS: Choriogonadotropin in serum (Serum HCG): 8761 mIU/mL Last menstrual period start date: 07/03/2024 Gestational age (Established): 6 w 3 d Estimated due date (Established): 04/09/2025 TECHNIQUE: Imaging protocol: Real-time transabdominal obstetrical ultrasound of the maternal pelvis and a first trimester , less than 14 weeks 0 days, with image documentation. Transvaginal imaging was used for better evaluation of the fetus, adnexa, and/or cervix. COMPARISON: US OB <= 14 weeks fetus [id number] 04/04/2024 2:58 PM FINDINGS: GESTATION: Gestation: Intrauterine gestation is visualized. pole is visualized. Yolk sac is visualized. Embryonic/ heart rate: 122 bpm Extra-embryonic membranes/Placenta: Unremarkable. No subchorionic bleed. Amniotic/Chorionic fluid: Amniotic and extra-amniotic fluid are normal for gestational age. BIOMETRY: Gestational age (AUA): 6 w 0 d Estimated due date (AUA): 04/12/2025 [place] rump length (CRL): 3.6 mm. EGA (CRL) is 6 w 0 d MATERNAL: Uterus: Uterus measures 9.06 cm x 5.53 cm x 4.55 cm. Cervix: Unremarkable. Endocervical canal is closed. Right ovary/adnexa: Right ovary measures 3.8 cm x 1.6 cm x 2.2 cm. Right ovarian volume is 7.1 mL. Left ovary/adnexa: Left ovary measures 2.2 cm x 2.5 cm x 1.6 cm. Left ovarian volume is 4.6 mL. Intraperitoneal space: No intraperitoneal free fluid. US/US OB <=14 wk fetus w transvag IMPRESSION: Single live intrauterine fetus. EGA based on ultrasound is 6 weeks and 0 days.
--- NOTE | 2024-08-17 22:04 | W.ED.FEMALGU ---
HPI - Female Genitourinary General: Chief complaint: Vaginal Bleeding Stated complaint: spotting (6wks preg) Time Seen by Provider: 08/17/24 20:19 Source: patient Mode of arrival: ambulatory Limitations: no limitations History of Present Illness: Patient presents emergency department today for evaluation treatment of concerns for bleeding in early . Patient reports she is approximately 6 weeks by LMP. She is not on any kind of control or hormones at this time. Patient does have a local LIQUID FLAVOR COMPOUNDER but, does not have an appointment until September. Patient has a history of ectopic on the left side and reports of bleeding with her ectopic . She has also had other without any bleeding. Patient complains of some right sided abdominal discomfort with daily nausea but no vomiting. Patient is not had any fever. No diarrhea. Denies any vaginal pain or vaginal discharge. Patient reports bleeding started this evening. States she felt some moisture in her underwear and when she went to the bathroom, had an area approximately the size of a silver dollar of bright red blood. She has not had that much of bleeding since but states when she wipes with toilet tissue, has a light pink tinge. She has used the restroom here in the emergency department and states she has not had any blood on the toilet tissue this time. Related Data Home Medications Medication Instructions Recorded Confirmed 05/28/22 Previous Rx's Medication Instructions Recorded docusate sodium 100 mg capsule 100 mg PO BID #20 caps 05/29/22 hydrocodone 5 mg-acetaminophen 325 1 tab PO Q6H PRN Moderate To 05/29/22 mg tablet Severe Pain #28 tabs ibuprofen 800 mg tablet 800 mg PO TID #45 tabs 05/29/22 Allergies Allergy/AdvReac Type Severity Reaction Status Date / Time amoxicillin Allergy Severe throat Verified 04/16/21 12:19 swelling--never tried Keflex Penicillins Allergy Severe throat Verified 04/15/21 12:05 swelling Review of Systems General: Reports: 10 or more systems reviewed and unremarkable except in HPI and below PFSH ED PFSH: Medical History History of ectopic 2020 treated with salpingectomy No pertinent past medical history Denies diabetes, asthma, hypertension, seizures, DVT/PE PCP: None Surgical History Status post laparoscopy 04/17/2021---laparoscopic left partial salpingectomy by Dr. Rod at [facility]. Dense adhesions of the bladder onto the uterus and the uterus was adherent to the anterior abdominal wall. Ovary was adherent on the right side ovarian fossa but fallopian tube was normal. Left fallopian tube was adherent to the pelvic sidewall but left ovary was normal. Hx of section X 2 2015 2017---per patient report after second she was told she has a lot of scar tissue. Family History Denies family history of Colon cancer Ovarian cancer Diabetes Heart disease Hypercholesteremia Breast cancer Hypertension Uterine cancer Thyroid disease Stroke Physical Exam Const: COMMON NORMALS: no acute distress, average body habitus, patient oriented x3 and alert HENMT: COMMON NORMALS: normocephalic, atraumatic, hearing grossly normal bilaterally and moist oral mucous membranes HEAD & SCALP: normocephalic and atraumatic Eye: COMMON NORMALS: Equal, round and reactive pupils present, EOMs intact bilaterally and conjunctivae normal CONJUNCTIVA: Yes conjunctivae normal PUPIL: Yes Equal, round and reactive pupils present Neck/C-Spine: COMMON NORMALS: no JVD Lymph: LYMPHATIC: no lymphadenopathy noted Resp: COMMON NORMALS: normal respiratory effort, No retractions and No use of accessory muscles Cardio: COMMON NORMALS: no JVD and regular rate RATE: regular rate GI: OTHER: Abdomen is soft, nontender on palpation. Normal active bowel sounds. Extremity: COMMON NORMALS: normal to inspection, full ROM and capillary refill normal Neuro: COMMON NORMALS: patient oriented x3 SENSORIUM/ORIENTATION: Yes alert Psych: COMMON NORMALS: mental status grossly normal, cooperative, normal affect, speech normal and activity/motor behavior normal SPEECH: Yes normal speech Course Vital Signs: Vital signs: Vital Signs Temperature 98.2 F 08/17/24 20:02 Pulse Rate 115 H 08/17/24 20:02 Respiratory Rate 16 08/17/24 20:02 Blood Pressure 123/77 08/17/24 20:02 Pulse Oximetry 100 08/17/24 20:02 Oxygen Delivery Me thod Room Air 08/17/24 20:02 MDM - Female Medical Decision Making Patient presented to the emergency department today for concerns of bleeding in early . Patient has an LIQUID FLAVOR COMPOUNDER appointment but not until next month. She does have a history of ectopic and admitted she was concerned. Lab work shows elevated hCG level at 8700. She is Rh+ and does not require RhoGAM shot. Since she has not had an ultrasound, we did obtain an ultrasound to confirm intrauterine . While waiting for the ultrasound results to come back, patient told the nurse that she was told everything was okay and was going to leave. I had not spoken to the patient regarding any of her ultrasound results so I am not sure who told her that everything looked good. Nurse indicated that they did not stay to sign any AMA paperwork. I would have liked to have had the patient follow-up with the LIQUID FLAVOR COMPOUNDER or call them first thing in the morning to get a repeat hCG level-especially if she has any continued bleeding. Differential Diagnosis Unlikely abdominal pain, acute appendicitis, endometriosis, gastroenteritis or small bowel obstruction Lab Data 08/17/24 20:19 08/17/24 20:19 Radiology Impressions Obstetrics Ultrasound 08/17/24 21:20 IMPRESSION: Single live intrauterine fetus. EGA based on ultrasound is 6 weeks and 0 days. Laboratory Results WBC 10.61 10^3/uL (3.29-11.43) 08/17/24 20:19 RBC 4.66 10^6/uL (3.85-5.65) 08/17/24 20:19 Hgb 13.60 g/dL (11.27-16.99) 08/17/24 20:19 Hct 40.3 % (36-47) 08/17/24 20:19 MCV 86.5 fl (85-98) 08/17/24 20:19 MCH 29.2 pg (27-33) 08/17/24 20:19 MCHC 33.7 g/dL (30-55) 08/17/24 20:19 RDW 13.3 % (12.1-15.1) 08/17/24 20:19 Plt Count 249 10^3/cmm (157-399) 08/17/24 20:19 MPV 9.6 fL (7.4-10.4) 08/17/24 20:19 Neut % (Auto) 68.5 % 08/17/24 20:19 Lymph % (Auto) 23.4 % 08/17/24 20:19 [place] % (Auto) 5.2 % 08/17/24 20:19 Eos % (Auto) 2.4 % 08/17/24 20:19 Baso % (Auto) 0.3 % 08/17/24 20:19 Neut # (Auto) 7.28 10^3/uL (1.8-7.7) 08/17/24 20:19 Lymph # (Auto) 2.5 10^3/uL (0.8-4.8) 08/17/24 20:19 [place] # (Auto) 0.6 10^3/uL (0.2-0.9) 08/17/24 20:19 Eos # (Auto) 0.3 10^3/uL (0.0-0.8) 08/17/24 20:19 Baso # (Auto) 0.0 10^3/uL (0.0-0.1) 08/17/24 20:19 Nucleated RBC % (auto) 0 % 08/17/24 20:19 Nucleated RBCs # 0.0 /100WBC 08/17/24 20:19 Sodium 135 mmol/L (136-145) L 08/17/24 20:19 Potassium 3.9 mmol/L (3.5-5.1) 08/17/24 20:19 Chloride 103 mmol/L (98-107) 08/17/24 20:19 Carbon Dioxide 22 mmol/L (22-29) 08/17/24 20:19 Anion Gap 13.9 (5-19) 08/17/24 20:19 BUN 8 mg/dL (6-20) 08/17/24 20:19 Creatinine 0.6 mg/dL (0.5-0.9) 08/17/24 20:19 GFR Calculation 122.8 mL/min (90-130) 08/17/24 20:19 Glucose 114 mg/dL (65-115) 08/17/24 20:19 Calculated Osmolality 279 mOsm/kg (285-295) L 08/17/24 20:19 Calcium 8.6 mg/dL (8.5-10.5) 08/17/24 20:19 Total Bilirubin 0.2 mg/dL (0.15-1.2) 08/17/24 20:19 AST 12 U/L (0-32) 08/17/24 20:19 ALT 10 U/L (0-33) 08/17/24 20:19 Alkaline Phosphatase 89 U/L (35-105) 08/17/24 20:19 Total Protein 6.5 g/dL (6.6-8.7) L 08/17/24 20:19 Albumin 4.2 g/dL (3.5-5.2) 08/17/24 20:19 Globulin 2.3 g/dL (1.3-4.6) 08/17/24 20:19 Ser , Semi-Qnt 8761.00 mIU/mL 08/17/24 20:19 Urine Color Yellow (Yellow) 08/17/24 20:28 Urine Appearance Cloudy (CLEAR) A 08/17/24 20: Urine pH 6.0 (5-7) 08/17/24 20:28 Ur Specific [place] 1.008 (1.005-1.030) 08/17/24 20:28 Urine Protein Negative (Negative) 08/17/24 20:28 Urine Glucose (UA) Negative (Normal) 08/17/24 20:28 Urine Ketones Negative (Negative) 08/17/24 20:28 Urine Blood Negative (Negative) 08/17/24 20: Urine Nitrate Negative (Negative) 08/17/24 20: Urine Bilirubin Negative (Negative) 08/17/24 20:28 Urine Urobilinogen 1.0 mg/dL (Negative) 08/17/24 20:28 Ur Leukocyte Esterase Negative (Negative) 08/17/24 20:28 Urine RBC 3-5 /hpf (0-2) 08/17/24 20:28 Urine WBC 0-5 /hpf (0-5) 08/17/24 20:28 Ur Squamous Epith Cells 0-5 /hpf (0-5) 08/17/24 20:28 Amorphous Sediment Not Reportable 08/17/24 20:28 Urine Bacteria None seen /hpf (NONE) 08/17/24 20:28 Hyaline Casts 0-4 /lpf H 08/17/24 20:28 Blood Type O Positive 08/17/24 20:19 Rho(D) Type Rh positive 08/17/24 20:19 All radiology interpretation(s) finalized by discharge (Radiology interpretations were finalized but, after patient left AMA) Discharge Plan Discharge Patient Disposition: Left Against Medical Advice Condition: Stable Prescriptions: No Action ibuprofen 800 mg Tablet 800 mg PO TID Qty: 45 0RF hydrocodone-acetaminophen 5-325 mg Tablet 1 tab PO Q6H PRN (Reason: Moderate To Severe Pain) Qty: 28 0RF docusate sodium 100 mg Capsule 100 mg PO BID Qty: 20 0RF Coding Level of Care Code ED Tax Agent for Candie Dhillon
== END 2024-08-17 23:06 | disposition left against medical advice (07) ==
PROVIDERS: Emergency Medicine; Emergency Provider Physician Assistant; PCP Family Medicine
DX: Z53.21 Procedure and treatment not carried out due to patient leaving prior to being seen by health care provider (principal)
CPT/HCPCS: 36415; 76801; 76817; 80053; 81001; 84702; 85025; 86900; 99284

== ENCOUNTER 2024-09-14 11:41 | Emergency (ER) | payer MEDICAID, SELFPAY ==
[2024-09-14 11:46] VITALS: BP 130/73; PULSE 89; TEMP 36.7; O2SAT 99; BMI 28.5
[2024-09-14 13:00] LABS: Basophils % 0.2 %; Eosinophils # 0.3 10^3/uL (0.0-0.8); Eosinophils % 2.1 %; Hematocrit 41.6 % (36-47); Lymphocytes # 2.7 10^3/uL (0.8-4.8); Lymphocytes % 22.1 %; Mean Corpuscular HGB Conc 33.9 g/dL (30-55); Mean Corpuscular Hemoglobin 29.1 pg (27-33); Monocytes # 0.5 10^3/uL (0.2-0.9); Monocytes % 4.1 %; Neutrophils # 8.62 10^3/uL (1.8-7.7); Neutrophils % 71.2 %; Nucleated Red Blood Cells % 0 %; Platelet Count 244 10^3/cmm (157-399); Red Blood Count 4.84 10^6/uL (3.85-5.65); Red Cell Distribution Width 12.4 % (12.1-15.1); White Blood Count 12.13 10^3/uL (3.29-11.43)
--- NOTE | 2024-09-14 13:37 | USR_ITS ---
PROCEDURE INFORMATION: Exam: US First Trimester, Transabdominal Exam date and time: 09/14/2024 1:53 PM Age: 23 years old Clinical indication: Screening exam; Routine US, uterus; Additional info: Bleeding, approx 10 wks LABS AND CLINICAL REPORTS: Gestational age (Established): 10 w 3 d Estimated due date (Established): 04/09/2025 TECHNIQUE: Imaging protocol: Real-time transabdominal obstetrical ultrasound of the maternal pelvis and a first trimester , less than 14 weeks 0 days, with image documentation. COMPARISON: US OB <=14 wk fetus w transvag 08/17/2024 9:37 PM FINDINGS: GESTATION: Gestation: Single intrauterine gestation. Yolk sac is regular and round in morphology. Embryo/ cardiac activity (BPM): 165 bpm Extra-embryonic membranes/Placenta: Unremarkable. No subchorionic bleed. Amniotic/Chorionic fluid: Amniotic and extra-amniotic fluid are normal for gestational age. BIOMETRY: Gestational age (AUA): Estimated gestational age based on a crown-rump length of 3.6 cm is 10 weeks 3 days. MATERNAL: Uterus: Unremarkable. Cervix: Unremarkable. Endocervical canal is closed. Right ovary/adnexa: Obscured by lack of adequate acoustic window. Left ovary/adnexa: Obscured by lack of adequate acoustic window. Intraperitoneal space: No intraperitoneal free fluid. US/US OB <= 14 weeks fetus [id number] IMPRESSION: Single living IUP.
--- NOTE | 2024-09-14 14:50 | ED_ITS ---
HPI - Female Genitourinary 2 General: Chief complaint: Vaginal Bleeding Stated complaint: 10wk. pregant, bleeding Time Seen by Provider: 09/14/24 14:49 Source: patient Mode of arrival: ambulatory Limitations: no limitations History of Present Illness: Patient is a 23-year-old female at approximately 10 weeks presents to ED today with complaint of vaginal bleeding that began yesterday. Patient states she was seen here almost a month ago for vaginal bleeding. She has had intrauterine confirmed. She sees Dr. Hensley her OB. She states she has not had any recent heavy lifting or intercourse. She feels like bleeding has lightened today. She is not having any pain or cramping. Patient states she has a history of 2 previous miscarriage as well as an ectopic. MD elicited complaint: vaginal bleeding and possible miscarriage Onset (ago): day(s) Severity: mild Vaginal discharge: none Vaginal bleeding: moderate (improving/scant now) Exacerbating factors: none Relieving factors: none Associated symptoms: Reports no associated symptoms; Deny abdominal pain or nausea Patient : Yes Related Data Home Medications Medication Instructions Recorded Confirmed 05/28/22 Previous Rx's Medication Instructions Recorded docusate sodium 100 mg capsule 100 mg PO BID #20 caps 05/29/22 hydrocodone 5 mg-acetaminophen 325 1 tab PO Q6H PRN Moderate To 05/29/22 mg tablet Severe Pain #28 tabs ibuprofen 800 mg tablet 800 mg PO TID #45 tabs 05/29/22 Allergies Allergy/AdvReac Type Severity Reaction Status Date / Time amoxicillin Allergy Severe throat Verified 09/14/24 11:50 swelling--never tried Keflex Penicillins Allergy Severe throat Verified 09/14/24 11:50 swelling Review of Systems 2 GI: Denies: abdominal pain, nausea, vomiting or diarrhea : Reports: vaginal bleeding; Denies: flank pain, difficulty voiding, urinary frequency, urinary urgency, urinary hesitancy, vaginal odor or pelvic pain Musc: Denies: back pain Neuro: Denies: dizziness PFSH ED 2 PFSH: Medical History History of ectopic 2020 treated with salpingectomy No pertinent past medical history Denies diabetes, asthma, hypertension, seizures, DVT/PE PCP: None Surgical History Status post laparoscopy 04/17/2021---laparoscopic left partial salpingectomy by Dr. Rod at [facility]. Dense adhesions of the bladder onto the uterus and the uterus was adherent to the anterior abdominal wall. Ovary was adherent on the right side ovarian fossa but fallopian tube was normal. Left fallopian tube was adherent to the pelvic sidewall but left ovary was normal. Hx of section X 2 2015 2017---per patient report after second she was told she has a lot of scar tissue. Family History Denies family history of Colon cancer Ovarian cancer Diabetes Heart disease Hypercholesteremia Breast cancer Hypertension Uterine cancer Thyroid disease Stroke Physical Exam 2 Const: COMMON NORMALS: no acute distress, average body habitus, no limitations, healthy appearing, alert and well nourished Resp: COMMON NORMALS: normal respiratory effort and clear to auscultation bilaterally AUSCULTATION: clear to auscultation bilaterally Cardio: COMMON NORMALS: regular rate and regular rhythm RATE: regular rate RHYTHM: regular rhythm GI: COMMON NORMALS: Normal to inspection, nondistended, normoactive bowel sounds present, Soft to palpation, non-tender, No hepatosplenomegaly present and no masses PALPATION: Yes Soft to palpation and Yes No hepatosplenomegaly present : COMMON NORMALS: Yes no CVA tenderness BLADDER/KIDNEY EXAM: Yes no CVA tenderness Back/Pelvis: COMMON NORMALS: no CVA tenderness Neuro: SENSORIUM/ORIENTATION: Yes alert Course 2 Vital Signs: Vital signs: Vital Signs Temperature 98.1 F 09/14/24 11:46 Pulse Rate 89 09/14/24 11:46 Blood Pressure 130/73 09/14/24 11:46 Pulse Oximetry 99 09/14/24 11:46 Oxygen Delivery Me thod Room Air 09/14/24 11:46 MDM - Female Medical Decision Making Patient appears in no acute distress. Bleeding is reportedly minimal now. Vital signs are stable. Blood work is unremarkable. Ultrasound obtained showing a live IUP at approximately 10 weeks. She does not require RhoGAM based on blood type. She will be encouraged to follow-up with her OB provider. Return ED precautions given. Medical Records I reviewed the patient's medical records. Lab Data I reviewed the patient's lab results. 09/14/24 12:54 Radiology Impressions Ultrasound 09/14/24 13:37 IMPRESSION: Single living IUP. Laboratory Results WBC 12.13 10^3/uL (3.29-11.43) H 09/14/24 12:54 RBC 4.84 10^6/uL (3.85-5.65) 09/14/24 12:54 Hgb 14.10 g/dL (11.27-16.99) 09/14/24 12:54 Hct 41.6 % (36-47) 09/14/24 12:54 MCV 86.0 fl (85-98) 09/14/24 12:54 MCH 29.1 pg (27-33) 09/14/24 12:54 MCHC 33.9 g/dL (30-55) 09/14/24 12:54 RDW 12.4 % (12.1-15.1) 09/14/24 12:54 Plt Count 244 10^3/cmm (157-399) 09/14/24 12:54 MPV 10.0 fL (7.4-10.4) 09/14/24 12:54 Neut % (Auto) 71.2 % 09/14/24 12:54 Lymph % (Auto) 22.1 % 09/14/24 12:54 [place] % (Auto) 4.1 % 09/14/24 12:54 Eos % (Auto) 2.1 % 09/14/24 12:54 Baso % (Auto) 0.2 % 09/14/24 12:54 Neut # (Auto) 8.62 10^3/uL (1.8-7.7) H 09/14/24 12:54 Lymph # (Auto) 2.7 10^3/uL (0.8-4.8) 09/14/24 12:54 [place] # (Auto) 0.5 10^3/uL (0.2-0.9) 09/14/24 12:54 Eos # (Auto) 0.3 10^3/uL (0.0-0.8) 09/14/24 12:54 Baso # (Auto) 0.0 10^3/uL (0.0-0.1) 09/14/24 12:54 Nucleated RBC % (auto) 0 % 09/14/24 12:54 Nucleated RBCs # 0.0 /100WBC 09/14/24 12:54 Ser , Semi-Qnt 05300.00 mIU/mL 09/14/24 12:54 All radiology interpretation(s) finalized by discharge Discharge Plan Discharge Patient Disposition: Home Clinical Impression: Bleeding in early Condition: Stable Prescriptions: No Action ibuprofen 800 mg Tablet 800 mg PO TID Qty: 45 0RF hydrocodone-acetaminophen 5-325 mg Tablet 1 tab PO Q6H PRN (Reason: Moderate To Severe Pain) Qty: 28 0RF docusate sodium 100 mg Capsule 100 mg PO BID Qty: 20 0RF Discharge Orders: Discharge ED (Routine); Ordered 09/14/24 Ordered By: Nusrat Sherman Referrals: Aaron Hensley MD [Primary Care Provider] - Activity Restrictions/Additional Instructions: Please contact your OB for further instructions regarding follow-up. You may return to the emergency department for severe vaginal bleeding, pain, or any other concerns you may have. Coding Level of Care Code ED Pancake Professional for Candie Dhillon
== END 2024-09-14 15:16 | disposition home or self-care (01) ==
PROVIDERS: Emergency Medicine; Emergency Provider Physician Assistant; PCP Family Medicine
DX: O20.9 Hemorrhage in early pregnancy, unspecified (principal); Z3A.10 10 weeks gestation of pregnancy
CPT/HCPCS: 36415; 76801; 84702; 85025; 99284

== ENCOUNTER 2025-02-06 19:05 | Outpatient (CLI) | payer MEDICAID, SELFPAY ==
[2025-02-06 19:05] VITALS: BMI 32.2
[2025-02-06 19:19] VITALS: TEMP 36.6
[2025-02-06 19:21] VITALS: BP 124/57; PULSE 96
[2025-02-06 19:36] VITALS: BP 101/59; PULSE 98
[2025-02-06 19:51] VITALS: BP 118/84; PULSE 96
[2025-02-06 19:59] LABS: Bilirubin Urine Negative (Negative); Blood Urine Negative (Negative); Glucose Urine UA Negative (Normal); Ketones Urine Negative (Negative); Leukocyte Esterase Urine Negative (Negative); Nitrate Urine Negative (Negative); Protein Urine Negative (Negative); Specific Gravity, Urine 1.011 (1.005-1.030); Urine Appearance Clear (CLEAR); Urine Color Yellow (Yellow); pH Urine 6.5 (5-7)
[2025-02-06 20:01] LABS: Bacteria Urine None Seen /hpf; Hyaline Casts Urine 0-4 /lpf; RBC Urine 0-2 /hpf (0-2); Squamous Epithelial Cell Urine 0-5 /hpf (0-5); WBC Urine 0-5 /hpf (0-5)
[2025-02-06 20:06] VITALS: BP 119/58; PULSE 95
[2025-02-06 20:25] VITALS: BP 119/58; PULSE 95; TEMP 36.6; O2SAT 100
== END 2025-02-06 20:27 | disposition home or self-care (01) ==
LOC: OPOB 19:06 → OBGYN 19:32
PROVIDERS: PCP Family Medicine; Visit Provider Family Medicine
DX: O13.9 Gestational [pregnancy-induced] hypertension without significant proteinuria, unspecified trimester (principal); Z3A.00 Weeks of gestation of pregnancy not specified; M54.9 Dorsalgia, unspecified
CPT/HCPCS: 59025; 81001; 99211

== ENCOUNTER 2025-03-18 03:57 | Outpatient (CLI) | payer MEDICAID, SELFPAY ==
[2025-03-18 04:06] VITALS: BP 130/78; PULSE 96; TEMP 35.7
[2025-03-18 04:16] VITALS: BMI 32.3
[2025-03-18 04:21] VITALS: BP 104/55; PULSE 88
[2025-03-18 04:36] VITALS: BP 102/56; PULSE 95
[2025-03-18 04:51] VITALS: BP 121/72; PULSE 88
[2025-03-18 05:06] VITALS: BP 100/53; PULSE 78
[2025-03-18 05:20] VITALS: BP 100/53; PULSE 78; RESP 16; TEMP 36.4; O2SAT 99
[2025-03-18 05:44] LABS: Nitrazine Paper, PH Negative
== END 2025-03-18 05:20 | disposition home or self-care (01) ==
LOC: OPOB 03:57 → OBGYN 03:58
PROVIDERS: Absent Provider Family Medicine; PCP Family Medicine; Visit Provider Family Medicine
DX: O26.899 Other specified pregnancy related conditions, unspecified trimester (principal); Z3A.00 Weeks of gestation of pregnancy not specified; N89.8 Other specified noninflammatory disorders of vagina
CPT/HCPCS: 59025; 83986; 99211

== ENCOUNTER 2025-04-03 04:51 | Inpatient (IN) | payer MEDICAID, SELFPAY ==
--- OUTSIDE RECORDS SUMMARY | 2018-05-26 10:15 | XMS_ITS | Continuity of Care Document ---
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 Name Role Phone Unavailable Unavailable Unavailable Allergies, Adverse Reactions, Alerts Substance Reaction Status Criticality Penicillins Active No Information Medications Medication Instructions Dosage Effective Dates (start - stop) Status Comments Nexplanon 68 mg subdermal implant Implant inserted once for 3 years - Active Procedures Procedure Date Finalize Template Workaround Behavioral Health Consult Insertion, Non-biodegradable Drug Delive ry Implant-Nexplanon Etonogestrel implant system ,Nexplanon A Infection Code Finalize Template Workaround Procedure Only URINE TEST Finalize Template Workaround Behavioral Health Consult OFFICE/OUTPATIENT VISIT, EST URINALYSIS AUTO W/O SCOPE URINALYSIS AUTO W/O SCOPE OFFICE/OUTPATIENT VISIT, EST URINALYSIS AUTO W/O SCOPE OFFICE/OUTPATIENT VISIT, EST STREP GP B CULTURE+RFLX URINALYSIS AUTO W/O SCOPE Fe-23-2018 OFFICE/OUTPATIENT VISIT, EST OB US FOLLOW-UP PER FETUS OFFICE/OUTPATIENT VISIT, EST OB US, FOLLOW-UP, PER FETUS COMPLETE CBC W/AUTO DIFF WBC GLUCOSE TEST ROUTINE VENIPUNCTURE URINALYSIS AUTO W/O SCOPE OB US FOLLOW-UP PER FETUS URINALYSIS AUTO W/O SCOPE OB US, FOLLOW-UP, PER FETUS OFFICE/OUTPATIENT VISIT, EST URINALYSIS AUTO W/O SCOPE OB US >/= 14 WKS SNGL FETUS - Global Sep OFFICE/OUTPATIENT VISIT, EST OFFICE/OUTPATIENT VISIT, EST Sequential 2 ROUTINE VENIPUNCTURE URINALYSIS AUTO W/O SCOPE OB US NUCHAL TYRA 1 GEST OFFICE/OUTPATIENT VISIT, EST URINALYSIS AUTO W/O SCOPE OB US NUCHAL TYRA, 1 GEST Sequential 1 ROUTINE VENIPUNCTURE OB US < 14 WKS SINGLE FETUS OB US < 14 WKS, SINGLE FETUS OFFICE/OUTPATIENT VISIT, EST URINALYSIS AUTO W/O SCOPE Drug Tests Presumptive Any Number Of Ricki g Classes URINALYSIS AUTO W/O SCOPE Drug Tests Presumptive Any Number Of Ricki g Classes URINE CULTURE, ROUTINE CPT 45776 2016 ABO GROUP & RHO(D) TYP (PP $10.25)CPTs 8 8070,96154 ANTIBODY SCREEN COMPLETE CBC W/AUTO DIFF WBC HEPATITIS B SURFACE AG EIA HIV ANTIGEN W/HIV ANTIBODIES RPR, RFX QN RPR/CONFIRM TP-PA 7 RUBELLA ANTIBODY Varicella-Zoster V AB, IgG ROUTINE VENIPUNCTURE CHYLMD TRACH DNA AMP PROBE N.GONORRHOEAE DNA AMP PROB OFFICE/OUTPATIENT VISIT, NEW OFFICE/OUTPATIENT VISIT, EST NO CHARGE URINE TEST NO CHARGE Duplicate Encounter No Work Today/No Charge URINE TEST NO CHARGE Panoramic Film Bitewings Four Films Intraoral Periapical First Film Intraoral Periapical Each Additional Film Intraoral Periapical Each Additional Film Intraoral Periapical Each Additional Film Oral Hygiene Instructions Caries High Risk EDR Approval Note OFFICE/OUTPATIENT VISIT, EST URINE TEST OFFICE/OUTPATIENT VISIT, EST OFFICE/OUTPATIENT VISIT EST URINE TEST Lab Only OFFICE/OUTPATIENT VISIT, NEW Intraoral Periapical First Film Limited Oral Evaluation Problem Focused Extraction, Erupted Tooth Or Exposed Meme t (Elevati EDR Approval Note Advance Directives Directive Yes / No Effective Date File Name No Information Encounters Encounter Description Practice Location Reason(s) For Visit Diagnoses Date Provider Providers Copied on Encounter [facility], [id number]- [facility], [place], [place], [address], [place] tel:[phone] Behavioral Health Integration Encounter for screening No Information [facility], [address] [id number]- [facility], [facility] rud[place], [place], [address], [place] tel:[phone] [facility]om[facility] contraception (chief complaint) Encounter for initial prescription of other contraceptiv esEncounter for initial prescription of implantable subdermal contraceptiv eEncounter for other contraceptiv e management 8 Ozzie De La Torre. [address], [id number] 0JV, [place], [place], [address], [place]. tel:[phone] Referring Provider: Britt Rader, [address] [id number] 00JV, [place], [address] . tel:[phone] [facility], [address] [id number]- [facility], [place], [place], [address], [place] tel:[phone] Behavioral Health Integration Encounter for screening 8 No Information OFFICE/OUTPA TIENT VISIT, [facility], [address] [id number] [id number]- [place], [address], [place] tel:[phone] [place] [address] (chief complaint) Encounter for screening, unspecifiedS upervision of high risk , unsp, unsp trimester 8 No Information [facility], [address] [id number] [id number]- [place], [address], [place] tel:[phone] Family Medicine F1 Supervision of high risk , unsp, unsp trimester 8 No Information OFFICE/OUTPA TIENT VISIT, [facility], [address] [id number] 6629229KI- [facility], [place], [place], [address], [place] tel:[phone] [place] [address] routine (chief complaint) Encounter for screening, unspecifiedE ncounter for supervision of other normal , 3rd trimester 8 No Information [facility], [address] [id number] 9525631YG- [place], [address], [place] tel:[phone] Family Medicine F1 Supervision of high risk , unsp, unsp trimester 8 No Information OFFICE/OUTPA TIENT VISIT, [facility], [address] [id number] 8638679KT- [facility], [place], [place], [address], [place] tel:[phone] [place] [address] routine (chief complaint) Encounter for screening, unspecifiedE ncounter for supervision of other normal , 3rd trimester 8 No Information [facility], [address] Yxfnl[address] 8737695CTPr[facility], [place], [address], [place] tel:[phone] Family Medicine Supervision of high risk , unsp, unsp trimester 8 No Information [facility], [address] [id number] 2369293WRSumner [facility], [place], [place], [address], [place] tel:[phone] Family Medicine Supervision of high risk , unsp, unsp trimester 8 No Information OFFICE/OUTPA TIENT VISIT, [facility], [address] Egjmr610C6 8033130YXPratt [facility], [place], [place], [address], [place] tel:[phone] [place] [address] Encounter for supervision of other normal , 3rd okqiqpdfu92 weeks gestation of 8 No Information [facility], [address] Ixkkq[address] 2736801EUCitizens [facility], [place], [address], [place] tel:[phone] [place] [address] Encounter for other screening follow-up 8 Manisha Rhoades. [address], [place], [address], [place]. tel:[phone] OFFICE/OUTPA TIENT VISIT, [facility], [address] Mbvto769A3 9720500MKBrim[place], [address], [place] tel:[phone] [place] [address] Supervision of high risk , 2nd [id number] weeks gestation of pregnancyEnc ounter for other screening follow-up 8 No Information [facility], [address] Boald[address]Q2 6373556EE- [place], [address], [place] tel:[phone] Family Medicine Supervision of high risk , unsp, unsp trimester 8 No Information [facility], [address] [id number] 0425195NR- [place], [address], [place] tel:[phone] Family Medicine F1 Supervision of high risk , unsp, unsp trimester 8 No Information [facility], [address] Paetm515G9 [id number] [place], [address], [place] tel:[phone] [place] [address] Encounter for other screening follow-up 8 Manisha Rhoades. [address] , [place], [place], [address], [place]. tel:[phone] [facility], [address] Hoirb353W8 1414355LWBrimfield[place], [address], [place] tel:[phone] Family Medicine Supervision of high risk , unsp, unsp trimester 8 No Information OFFICE/OUTPA TIENT VISIT, [facility], [address] Qhxdj057Y2 8671114YBNew [place], [address], [place] tel:[phone] [place] [address] routine (chief complaint) Encounter for other screening follow-up 8 No Information [facility], [address] Knrhi743M2 0548534YSNew [place], [address], [place] tel:[phone] Family Medicine Supervision of high risk , unsp, unsp trimester 7 No Information OFFICE/OUTPA TIENT VISIT, [facility], [address] Uhwac[address]R0 2919342VV- [facility], [place], [place], [address], [place] tel:[phone] [place] [address] routine (chief complaint) Encounter for screening, unspecifiedS upervision of other high risk pregnancies, second trimester 7 No Information OFFICE/OUTPA TIENT VISIT, EST [facility], [address] Buwfj388J4 0396034BE- [facility], [place], [place], [address], [place] tel:[phone] [place] [address] routine (chief complaint) Supervision of other high risk pregnancies, second trimester 7 No Information [facility], [address] Qxvds798I1 5423148RWPratt [facility], [place], [place], [address], [place] tel:[phone] Family Medicine F1 Supervision of high risk , unsp, unsp trimester 7 No Information [facility], [address] Bxewb425Y7 3494492RHPratt Regional [facility], [place], [address], [place] tel:[phone] Family Medicine F1 Obesity complicating , unspecified trimester 7 No Information [facility], [address] Rwvfe055Q3 9283810JYSumner [facility], [place], [place], [address], [place] tel:[phone] [place] [address] Encounter for screening for nuchal translucency Obesity complicating , unspecified trimesterMat ernal care for unsp type scar from previous delSmoking (tobacco) complicating , unsp trimester Jul-3 0-201 7 Manisha Rhoades. [address] [place], [place], [address], [place]. tel:[phone] [facility], [address] Vhohj364C3 0505837JNSumner Regional [facility] Center, [place], [place], [address], [place] tel:[phone] Family Medicine F1 Supervision of high risk , unsp, unsp trimester Oct- No Information OFFICE/OUTPA TIENT VISIT, [facility], [address] Ekeag473S0 0056839NKNew [place], [place], [address], [place] tel:[phone] [place] [address] routine (chief complaint) Supervision of other high risk pregnancies, second trimester No Information [facility], [address] [id number] [id number] Regional Medical Center, [place], [place], [address], [place] tel:[phone] [place] [address] Encounter for screening for nuchal translucency Obesity complicating , unspecified trimesterMat ernal care for unsp type scar from previous delSmoking (tobacco) complicating , unsp trimesterSup ervision of high risk , unsp, unsp trimester No Information [facility], [address] Cjhct374A6 4588316MABrim[place], [place], [address], [place] tel:[phone] Family Medicine Encounter for screening for nuchal translucency No Information [facility], [address] Kywut467X7 6367249PKNew [place], [address], [place] tel:[phone] [place] [address] Irregular menstruation , unspecifiedO besity complicating , unspecified trimesterSup ervision of high risk , unsp, unsp trimesterMat ernal care for unsp type scar from previous del Jul- 7 Manisha Rhoades. [address], [place], [address], [place]. tel:[phone] OFFICE/OUTPA TIENT VISIT, [facility], [address] Jlbwn640Z3 7931372EDNew [place], [address], [place] tel:[phone] [place] [address] Irregular menstruation , unspecifiedO besity complicating , unspecified trimesterSup ervision of high risk , unsp, unsp trimesterMat ernal care for unsp type scar from previous delSmoking (tobacco) complicating , unsp trimesterEnc ounter for supervision of other normal , 1st trimester9 weeks gestation of Jun- 7 No Information [facility], [address] Uoovx859H8 [id number] [place], [address], [place] tel:[phone] Family Medicine F1 Supervision of high risk , unsp, unsp trimester Jun- 7 No Information [facility], [address] Polsx313Q5 4818856EJBrimfield, [place], [address], [place] tel:[phone] Family Medicine F1 Supervision of high risk , unsp, unsp trimester Jun- 7 No Information [facility], [address] Yqvwp590M9 8187527XVBrimfield, [place], [address], [place] tel:[phone] Family Medicine F1 Encounter for screening of mother Jun- No Information [facility], [address] Eqayj198R7 8766803KEBrimfield, [place], [address], [place] tel:[phone] Family Medicine F1 Encounter for screening of mother Jun- No Information OFFICE/OUTPA TIENT VISIT, [facility], [address] Bmvpo525Q6 0830953JNBrimfield, [place], [address], [place] tel:[phone] [facility] F1 (chief complaint) 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 [address], [place], [address], [place]. tel:[phone] Referring Provider: Riccardo Zarco, [address] [place], [address] . tel:[phone] [facility], [address] [id number] 1274033PF- [place], [address], [place] tel:[phone] [facility] F1 No Information Jun- No Information [facility], [address] Wybus807A4 1181922QJ- [place], [place], [address], [place] tel:[phone] Family Medicine F1 No Information Manisha Rhoades. [address], [place], [address], [place]. tel:[phone] Referring Provider: Jf Leone, [address] [place], [address] . tel:[phone] [facility], [address] Bqqet624L9 7048702FL- [place], [address], [place] tel:[phone] Family Medicine F1 Amenorrhea, unspecified 7 Manisha Rhoades. [address], [place], [address], [place]. [phone] Referring Provider: Jf Leone, [address] [place], [address] . tel:[phone] [facility], [address] Asmgv711C0 1693498TG- [place], [address], [place] tel:[phone] Women Health F1 No Information 7 No Information [facility], [address] [id number] 4001589VU- [place], [address], [place] tel:[phone] [facility] F1 No Information 7 Chapo Pearson. [address], [place], [address], [place]. tel:[phone] Referring Provider: Lili Cowan, [address] [place], [address] . tel:[phone] [facility], [address] Klwrn944R9 0441654VQNew [place], [place], [address], [place] tel:[phone] Family Medicine F1 Amenorrhea, unspecified Chapo Pearson. [address], [place], [address], [place]. tel:[phone] Referring Provider: Lili Cowan, [address] [place], [address] . tel:[phone] [facility], [address] Nyouj051L0 9188052WQBrimfield, [place], [address], [place] tel:[phone] Family Medicine F1 No Information Chapo Pearson. [address], [place], [address], [place]. tel:[phone] Referring Provider: Lili Cowan, [address] [place], [address] . tel:[phone] [facility], [address] Sevry802D3 9763451ZTBrimfield, [place], [address], [place] tel:[phone] [facility] Encounter for dental exam and cleaning w/o abnormal findings 7 Wayne Figueroa. [address] [place], [address], [place]. tel:[phone] Referring Provider: Henry Louis, [address] [place], [address]. tel:[phone] OFFICE/OUTPA TIENT VISIT, [facility], [address] Xxfga790H1 7086114XMSumner Regional Medical Center, [place], [place], [address], [place] tel:[phone] Family Medicine F1 L eye irritation (chief complaint) Conjunctivit is 7 No Information [facility], [address] Nsgdl196Z9 4785260CQPratt Regional Medical Center, [place], [place], [address], [place] tel:[phone] Family Medicine F1 Encounter for therapeutic drug level monitoring No Information OFFICE/OUTPA TIENT VISIT, [facility], [address] Gqspe791M8 9579327WGBrimfield, [place], [address], [place] tel:[phone] Family Medicine F1 control (chief complaint) Encounter for initial prescription of injectable contracep 7 No Information OFFICE/OUTPA TIENT VISIT [facility], [address] Myhhw917K9 6831699BSPratt Regional Medical Center, [place], [place], [address], [place] tel:[phone] Family Medicine F1 Infected/Ingr own R Great Toenail (chief complaint) Ingrowing nailRash 7 Carolee Gu. [address], [place], [address], [place]. tel:[phone] Referring Provider: Tom Cota, [address] [place], [address] . tel:[phone] [facility], [address] Suowq873I4 1724424RWBrimfield, [place], [address], [place] tel:[phone] Family Medicine F1 Amenorrhea, unspecified 7 Manisha Rhoades. [address], [place], [address], [place]. tel:[phone] Referring Provider: Jf Leone, [address] [place], [address] . tel:[phone] [facility], [address] Nypvx711A1 1794618BBNew [place], [place], [address], [place] tel:[phone] Family Medicine F1 No Information 7 Manisha Rhoades. [address], [place], [address], [place]. tel:[phone] Referring Provider: Jf Leone, [address] [place], [address] . tel:[phone] OFFICE/OUTPA TIENT VISIT, [facility], [address] [id number] 4422200UPBrimfield, [place], [address], [place] tel:[phone] Family Medicine F1 cough (chief complaint) Upper respiratory infection 6 Cipriano Santos. [address], [place], [address], [place]. tel:[phone] Referring Provider: Tom Cota, [address] [place], [address] . tel:[phone] [facility], [address] Rczme909Z0 0558377YCBrimfield, [place], [address], [place] tel:[phone] [facility] Encounter for dental exam and cleaning w/o abnormal findings 6 No Information Family History Family Member Type Diagnosis Age At Onset Father Problem (finding) Alcoholism/ Anxiety Mother Problem (finding) Anxiety/ Depression Sister Problem (finding) Anxielty Asthma/ Depres maciel Brother Problem (finding) Alive and well Payers Payer name Insurance type Covered democrat ID Eb ziegler(cici) Pool [place] Medicaid MC [id number] Social History Type Description Quantity Date Captured Comments Alcohol Use Details Unknown Caffeine Use Details Unknown Tobacco Use Status No Information Smoking Status No Information Sex Female Sexual Orientation Heterosexual Gender Identity Female Chief Complaint And Reason For Visit No Information Reason For Referral Reason For Referral No Information Plan Of Treatment Date Type Action Status Goal Tobacco cessation counseling completed Goal Tobacco cessation counseling completed Goal Tobacco cessation counseling completed Goal Dietary management education , guidance, and counseling completed Goal Tobacco cessation counseling completed Goal Tobacco cessation counseling completed History Of Present Illness Encounter Date Complaint History Of Prese nt Illness contraception 17yo pt her e for nexplanon insertion. Discussed risk/benefits and side effects of nexplanon. Pt had depo provera on 02/03/2018 after she had her last child. She is two weeks past due on depo - UPT negative today and denies intercourse in the last month. Pt states she has been spotting off and on since her last delivery. Discussed the bleeding profile of nexplanon vs IUD. Pt is not interested in an IUD and would like to proceed with nexplanon. LMP was 04/24/20 17. The patient had 1 previous . Additional information: See PND. routine See PND routine See PND routine See flowsheet routine See flowsheet routine See flowsheet routine See flowsheet LMP was 04/24/20 17. Patient was not taking control pills at or around the time of her LMP. Severity: low risk. Context: confirmed by lab test on 06/07/2017. The patient had 1 previous . Associated symptoms include nausea, vomiting. Pertinent negatives include anorexia, bleeding, breast tenderness, constipation, edema, fatigue, fever, headache, heartburn, irritability, pelvic pain, spotting, urinary difficulty, vaginal discharge. Exposure to Headlice The symptom s are reported as being mild. Son sent home from daycare d/t liceMother believes she does NOT have it actively, however wants to be checked L eye irritation (comments) Pt c /o bilateral eye drainage--yellow/green color. Itching/irritation. Sx began yesterday. States son recently was treated for pink eye x2 about 1 wk ago. Reports she used son's left-over eye gtts et sx improved. L eye irritation control 16 yr old female present for depo injection. She has an 11month old son. She is sexually active and has done research on the depo. She wishes to use a control that she will not need to remember on a daily basis. Questions answered today.Last mestral period 11/23/16, normal-moderate bleeding. Infected/Ingrown R Great Toenail The symptoms began 2 weeks ago. The symptoms are reported as being moderate. She states the symptoms are acute and have worsened. CC: Ingrown toenail on R great toeTried to remove X 2wksNow is sore, infected and draining cough Onset: 2 days ag o. The patient describes the cough as dry and non-productive. The problem has become gradually worse. Context: sick family member. There are no aggravating factors. There are no relieving factors. Associated symptoms include chills, cough, fever, nasal congestion, rhinorrhea and sore throat. Pertinent negatives include wheezing. Functional Status Date Functional Assessmen t No Information Instructions Date Instruction Additional Infor neville Discussed risks/bene fits and side effects of nexplanon, pt verbalized understanding.Consent form signed. Time out procedure performed.Nexplanon inserted, tolerated well.See procedure note for details.Pt to use condoms for 7 days. RTC for WWE or PRN concerns. Related to Encounter for initial prescription of implantable subdermal contraceptive See PNDContinue current care Rel ated to Supervision of high risk , unsp, unsp trimester Weight control education Related to Supervision of high risk , unsp, unsp trimester postterm counseling breast or bottle feeding depression influenza vaccine smoking counseling domestic violence education (n ewborn screening, jaundice, SIDS, car seat) family medical leave or disability forms TDAP Discussed Book Vitamins signs and symptoms o f -induced hypertension labor signs movement monitoring anesthesia / analgesia plans See PNDContinue current care Rel ated to Encounter for supervision of other normal , 3rd trimester Weight control education Related to Encounter for supervision of other normal , 3rd trimester See PNDContinue current care Rel ated to Encounter for supervision of other normal , 3rd trimester Weight control education Related to Encounter for supervision of other normal , 3rd trimester 1. Continue care2. S ee PND3. Follow up anatomy at next visit4. GALLO in 4 weeks Related to Supervision of other high risk pregnancies, second trimester 1. Continue care2. S ee PND3. RTC in 3 weeks Related to Supervision of other high risk pregnancies, second trimester 1. Continue care2. S ee PND3. RTC in 4 weeks Related to Supervision of other high risk pregnancies, second trimester 1. Denies SI/HI. Ayaka n for continued monitoring Related to Depression NOS 1. First trimester e ducation discussed2. Dietary and water intake guidelines discussed3. Obtain PNV from pharmacy4. screening completed5. RTC in 2 weeks6. Dating US scheduled Related to Supervision of other high risk pregnancies, first trimester exercise indications for ultrasound influenza vaccine environmental / work hazards travel tobacco (ask, advise , assess, assist and arrange) alcohol illicit / recreational drugs domestic violence seat belt use childbirth classes / hospital facilities Genetic Testing Book Vitamins signs and symptoms of la bor abnormal lab values influenza vaccine selecting a care provide r smoking counseling Genetic Testing Book Vitamins use of any medicatio ns (including supplements, vitamins, herbs, OTC drugs) smoking counseling domestic violence family pl anning / tubal sterilization HIV and other routine t ests risk factors identif ied by history anticipated course of c are nutrition and weight gain counseling, special diet toxoplasmosis precau tions (cats / raw meat) sexual activity No lice seen today * supportive care for dandruff discussed Related to Dandruff Lifestyle education Related to D ental Examination conjunctivitis i fee l is more liekly allergic in [place] sign of periorbital infectionshe is presribed patanolrecheck if worsensf/u with PCP one week Related to Conjunctivitis Depoprovera injectio n today pending results of urine test. Questions answered. Medication risk/benefit discussed. Largest side effect with injection in weight gain. She verbalizes understanding and wishes to proceed.RTC in 3 months for next injection. Related to Encounter for initial prescription of injectable contracep meds Rx'deradicate i nfection - discussed Related to Rash Abx Rx'dSchedule f/u w/PCP to remove toenail Related to Ingrowing nail Pt to f/u with PCP i n 7-10 days if not better or sooner if problems, advised to increase fluids and frequent hand washing. Related to Upper respiratory infection Patient advised about exercise R elated to Upper respiratory infection Dietary management e ducation, guidance, and counseling Related to Upper respiratory infection Lifestyle education Related to D ental Examination Assessments Type Assessment Date assessment Encounter for screening 018 Patient Care Teams Name Effective Dates (start - stop) Status Members No Information
--- NOTE | 2025-03-26 10:57 | P.ANESASSM_ITS ---
Pre-Anesthetic Assessment Height/Weight: Height 5 ft 8 in Preop Diagnosis: IUP Operation Date: 04/03/25 07:20 Proposed Procedures p Section With Tubal(Bilateral) - Aaron Hensley MD Was Beta Jose taken within 24 hours: N/A Was Clonidine taken within 24 hours: N/A Social Tobacco and No alcohol Exam alert, oriented x 3 and regular rate & rhythm Airway Submandibular: within normal limits Cervical ROM: within normal limits Mallampati: Class III Comments: Comments: Poor dentition, denies any loose Anesthetic Plan ASA status: 2 Anesthesia: Regional (specify below) Other: G6, P3 here for preanesthesia evaluation for planned No prior issues with previous C-sections but does believe she had to get blood last time Current smoker Denies any cardiac issues Will obtain labs morning of procedure Plan for routine with spinal Medications/Allergies Home Medications ?Medication ?Instructions ?Recorded ?Confirmed ?Last Taken ?Type 1 tab PO DAILY 05/28/2205/04 History Allergies Allergy/AdvReac Type Severity Reaction Status Date / Time amoxicillin Allergy Severe throat Verified 03/18/25 04:16 swelling--never tried Keflex Penicillins Allergy Severe throat Verified 03/18/25 04:16 swelling [facility] Anesthesia Medical History History of ectopic 2020 treated with salpingectomy No pertinent past medical history Denies diabetes, asthma, hypertension, seizures, DVT/PE PCP: None Surgical History Status post laparoscopy 04/17/2021---laparoscopic left partial salpingectomy by Dr. Rod at [facility] [place]. Dense adhesions of the bladder onto the uterus and the uterus was adherent to the anterior abdominal wall. Ovary was adherent on the right side ovarian fossa but fallopian tube was normal. Left fallopian tube was adherent to the pelvic sidewall but left ovary was normal. Hx of section X 2 2015 2017---per patient report after second she was told she has a lot of scar tissue. Family History Denies family history of Colon cancer Ovarian cancer Diabetes Heart disease Hypercholesteremia Breast cancer Hypertension Uterine cancer Thyroid disease Stroke
[2025-04-03] VITALS (231 sets, daily range): BP systolic 44–131; BP diastolic 16–76; PULSE 58–125; RESP 15–17; TEMP 35.7–36.8; O2SAT 80–100; BMI 32.3
--- OUTSIDE RECORDS SUMMARY | 2025-04-03 04:55 | XMS_ITS | Clinical Summary ---
Author Organization [facility] Address [address] [address] Phone Care Team Providers Care Blacking Wheel Tender Name Role Phone Unavailable Primary Care Provider Unavailabl e Allergies Active Allergy Reactions Criticality Noted Date Comments Amoxicillin Anaphylaxis High 11/05/2015 Penicillins Anaphylaxis High 11/05/2015 Medications [id number] (P-D PLUS) TabletIndication s:Supervision of low-risk , first trimester Take 1 Tablet by mouth daily. 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 Gender Identity Not on file Sexual Orientation Not on file Last Filed Vital Signs Vital Sign Reading Time Taken Comments Blood Pressure 120/70 03/25/2021 9:20 AM CDT Pulse 77 03/25/2021 9:20 AM CDT Temperature 36.2 C (97.1 F) 03/25/2021 9:20 AM CDT Respiratory Rate 16 02/03/2021 2:11 PM CDT Oxygen Saturation 98% 03/25/2021 9:20 AM CDT Inhaled Oxygen Concentration - - Weight 89.4 kg (197 lb) 03/25/2021 9:20 AM CDT Height 172.7 cm (5' 8 ) 03/25/2021 9:20 AM CDT Body Mass Index 29.95 03/25/2021 9:20 AM CDT Plan of Treatment Health Maintenance Due Date Last Done Comments HPV VACCINES (1 - 3-dose series) 2014 DTAP/TDAP/TD VACCINES (1 - Tdap) 2018 HEPATITIS B VACCINES (1 of 3 - 19+ 3-dose series) 09/11 CERVICAL CANCER SCREENING 2020 HPV/Cotest (21-29) 2020 PAP SMEAR 2020 INFLUENZA VACCINE (#1) 2024 RSV VACCINE (60+ or ) (1 - 1-dose 75+ series) 2074 [place] Sub[place] Plan / Payer (Ef fective 2015-Present) Name:Bernie Cruz Relation to Subscriber:Self Name:Bernie Cruz Payer ID:[id number] Group ID:Not on file Type:Medicaid Address: [address] [facility] [place] [id number]
--- OUTSIDE RECORDS SUMMARY | 2025-04-03 04:55 | XMS_ITS | Encounter Summary ---
Author Organization [employer] Address [address] [place] [address] Care Team Providers Care Check And Transfer Beader Name Role Phone Unavailable Primary Care Provider Unavailabl e Encounter Details Date Type Department Care Team (Late st Contact Info) Description 03/27/2025 External Device Data [facility] ABSTRACTION Provider, Abstract NO ADDRESS ON FILE Social History Tobacco Use Types Packs/Day Years Used Date Smoking Tobacco: Never Passive Smoke Exposure: Never Smokeless Tobacco: Never Alcohol Use Standard Drinks/Week Comments No 0 (1 standard drink = 0.6 oz pur e alcohol) Estimated Date of Delivery Comme nts Yes 04/09/2025 Sex and Gender Information Value Date Recorded Sex Assigned at Not on file 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
--- OUTSIDE RECORDS SUMMARY | 2025-04-03 04:55 | XMS_ITS | Data Portability ---
Author Organization LIANNA Santo Olsen [facility] Roni Goodrich [facility] Address [address] [address] Assessment Encounter Date Assessment Date Assessment LastModified by Organization Details LastModified Time 03/26/2025 03/26/2025 Confirmed ltcs. We discussed prep and details. [email or web address] Not available 03/26/2025 14:23:19 Plan of Treatment Reminders Order Date Submit Date Provider Last Modified By Organization Details Last Modified Time Details Appointments None recorded. Lab None recorded. Referral None recorded. Procedures None recorded. Surgeries None recorded. Imaging None recorded. Medication Orders escitalopra m 10 mg tablet 2024 025 [facility] #[id number], [address] [facility], [place], [address], 13:19:21 Patient TargetsNo targets recorded. Patient InstructionsNo instructions recorded. Reason for Referral None Reported. Results Created Date Observation Date Name Description Value Unit Range Abnormal Flag Note LastModifiedBy Organization Detail LastModifiedTime 03/13/2003/18/2025 CULTU RE, GROUP B STREP WITH SUSCE PTIBI LITY culture, group B strep with susceptibili ty SEE NOTE abnormal CULTU RE, GROUP B STREP WITH SUSCE PTIBI LITY Micro Numbe r: [id number] Test Statu s: Final Speci men Sourc e: Vagin al/an orect al Speci men Quali ty: Adequ ate Resul t: Group B Strep tococ cus isola reji Eryth romyc in testi ng indic ates that testi ng for induc ible clind amyci n resis tance is not requi red for this isola te. Note per CDC guide lines optim al recov abbey is achie claribel by swabb ing both the lower vagin a and rectu m (thro ugh the anal sphin cter) . Group B Strep ----- ----- ----- - INT FLORENCE AMPIC ILLIN S <=0.2 5 CLIND AMYCI N S <=0.2 5 1 PENIC ILLIN S <=0.0 6 VANCO MYCIN S 0.5 S = Susce ptibl e I = Inter media te R = Resis tant NS = Not susce ptibl e SDD = Susce ptibl e Dose Depen dent * = Not Teste d NR = Not Repor reji NN = See Thera py Comme nts THERA PY COMME NTS Note 1: Eryth romyc in testi ng indic ates that testi ng for induc ible clind amyci n resis tance is not requi red for this isola te. Not Available [facility] [address] [place], [address], 03/18/2025 10:02:08 Result Notes None recorded. Problems Name Problem SNOMED Code Status Onset Date Resolution Date Notes Provider Name and Address Organization Details Recorded Time Normal pregnanc y in [facility] 91469258298 4106 Active 2024 ROZINA Hensley [facility], JoseluisLAlbertoCAlebrto 5 13:27:08 Normal pregnanc y in [facility] 14785176613 4106 Active 2024 ROZINA DE LA FUENTE null [facility], L.L.CAlberto 13:27:07 Past pregnanc y history of section 123101546 Active OCHOA pickett [facility], JoseluisLAlbertoCAlberto 5 19:01:26 Threaten ed miscarri age 46448027 Completed 12/18/2024 OCHOA pickett [facility], LAlbertoLJulio Cesar 19:01:43 Ectopic pregnanc y 04816190 Completed 202112/18/2024 Ectopic Pregnanc y; 2020- luis enrique left tube; 07/16/20 1:45PM by Rozina Webb nder, Office Visit; Promoted ; acuity set as *; OCHOA CASA [facility], Roni 19:01:09 Problem Notes None recorded. Procedures Surgical History Date Name Laterality Status Provider Name and Address Organization Details Recorded Time 10/23/19 25 Date of Last Pap Smear completed [facility], Roni 01/15/2025 18:37:24 10/23/19 25 sampling of cervix for Papanicolaou smear completed [facility], Roni 01/15/2025 18:38:02 removal of ectopic fetus from abdominal cavity completed ROZINA WAKEFIELD [facility], Roni 09/13/2024 09:32:52 delivery completed [facility], JoseluisLJulio Cesar 09/13/2024 09:33:16 Imaging Results None recorded. Procedure Notes None recorded. Medical Equipment None Reported. Allergies Allergen ID Allergen Name Allergen Category Reaction Reaction Severity Criticality Documentation Date Start Date Code Code System Note Provider Name and Address Organization Details Recorded Time 81518 Product containin g penicilli n (product) medicatio n respirato ry distress Not available Not available 05/08/2023 17595 8001 SNOMED React ion: Diffi culty breat hussein, Diffi culty swall owing , Itchi ng; Comme nt: Recor ded 07/16 1:45P M by Rozina Alvarez hwand er, Offic e Visit ; Promo reji; Signi ficadamaris ce: *; ; Not Available [facility] 3 02:25:17 06819 amoxicill in medicatio n Not available Not available Not available 09/13/20242020 723 RxNorm ROZINA Hensley [facility], LAlbertoLJulio Cesar 4 09:26:17 Medications Name Sig Start Date Stop Date Status Note LastModified by Organization Details LastModified Time azithromyci n 250 mg tablet TAKE 2 TABLETS BY MOUTH TODAY, THEN TAKE 1 TABLET DAILY FOR 4 DAYS DIRECTED 04/07 completed Not Available Not Available Not Available metronidazo le 500 mg tablet TAKE 1 TABLET BY MOUTH TWICE A DAY FOR 7 DAYS 11/20 completed Not Available Not Available Not Available ofloxacin 0.3 % ear drops INSTILL 10 DROPS INTO AFFECTED EAR(S) ONCE DAILY 04/07 completed Not Available Not Available Not Available escitalopra m 10 mg tablet Take 1 tablet every day by oral route. 2024 active Not Available Not Available Not Avai lable active Not Available Not Avai lable Not Available Vitals Date Recorded Body height Body mass index (BMI) Body weight Oxygen saturation Oxygen saturation in Arterial blood by Pulse oximetry Heart rate Respiratory rate Body temperature Systolic blood pressure Diastolic blood pressure Provider Name and Address Organization Details Last Updated DateTime 5 172.72 cm 32.5 kg/m2 37838.7 7 g 98 % 98 % 100 /min 18 /min 98 [degF] 136 mm[Hg] 70 mm[Hg] ROZINA DUNCAN [facility], LAlbertoLJulio Cesar 5 12:54:50 Date Recorded Body height Body mass index (BMI) Body weight Oxygen saturation Oxygen saturation in Arterial blood by Pulse oximetry Heart rate Respiratory rate Body temperature Systolic blood pressure Diastolic blood pressure Provider Name and Address Organization Details Last Updated DateTime 5 172.72 cm 32.1 kg/m2 72258.3 9 g 98 % 98 % 111 /min 18 /min 97.7 [degF] 132 mm[Hg] 70 mm[Hg] ROZINA DUNCAN [facility], LAlbertoLJulio Cesar 5 13:28:55 Date Recorded Body height Body mass index (BMI) Body weight Respiratory rate Body temperature Oxygen saturation Oxygen saturation in Arterial blood by Pulse oximetry Heart rate Systolic blood pressure Diastolic blood pressure Provider Name and Address Organization Details Last Updated DateTime 5 172.72 cm 32.4 kg/m2 83938.1 7 g 18 /min 97.9 [degF] 98 % 98 % 120 /min 122 mm[Hg] 70 mm[Hg] OCHOA CORMIER [facility] 5 13:11:49 Date Recorded Body height Body mass index (BMI) Body weight Oxygen saturation Oxygen saturation in Arterial blood by Pulse oximetry Heart rate Respiratory rate Body temperature Systolic blood pressure Diastolic blood pressure Provider Name and Address Organization Details Last Updated DateTime 5 172.72 cm 32.1 kg/m2 46682.6 9 g 99 % 99 % 92 /min 18 /min 98.1 [degF] 118 mm[Hg] 68 mm[Hg] ROZINA DE LA FUENTE [facility] 5 13:04:27 Date Recorded Body height Body mass index (BMI) Body weight Oxygen saturation Oxygen saturation in Arterial blood by Pulse oximetry Heart rate Respiratory rate Body temperature Systolic blood pressure Diastolic blood pressure Provider Name and Address Organization Details Last Updated DateTime 5 172.72 cm 32.3 kg/m2 14915.2 8 g 98 % 98 % 100 /min 18 /min 97.8 [degF] 118 mm[Hg] 68 mm[Hg] ROZINA DE LA FUENTE [facility] 5 13:47:06 Social History Question Answer Notes LastModified by [employer] Details LastModified Time Tobacco Smoking Status Current Every Day Smoker ROZINA pickett [facility] 04/07/2024 10:52:12 What Was The Date Of Your Most Recent Tobacco Screening? 03/06/2025 Information not available 03/06/2025 What Is Your Relationship Status? Domestic Partner Information not available 04/07/2024 Are You Sexually Active? Yes Information not available 04/07/2024 Sex: Unknown Functional Status Question Answer Note LastModified by [employer] Details LastModified Time Do you use any illicit or recreational drugs? Yes marijuana [email or web address] Information not available 04/07/2024 What is your level of alcohol consumption? Occasional Information not available 04/07/2024 Are you able to care for yourself? Yes Information not available 04/07/2024 Mental Status None recorded. Family History Nothing Reported Notes:unknown family history Medical History No medical history recorded. Gynecological History Statement/Question Response Abnormal Pap N Date of Last Pap Smear 10/23/2024 Obstetrics History GPAL:G 7 P 3 0 3 3 Type Value Full Term 3 Spontaneous 2 Living 3 Ectopics 1 Total 7 Immunizations Vaccine Type Date Status Note Provider Nam e and Address Organization Details Recorded Time IPV 2 completed TREBA NEUSCHWANDER null, [facility] 04/07/2024 10:51:10 IPV 4 completed TREBA NEUSCHWANDER null, [facility] 04/07/2024 10:51:10 IPV 3 completed TREBA NEUSCHWANDER null, [facility] 04/07/2024 10:51:10 IPV 1 completed TREBA NEUSCHWANDER null, [facility] 04/07/2024 10:51:10 meningococcal ACWY, unspecified formulation 6 completed TREBA NEUSCHWANDER null, [facility] 04/07/2024 10:51:10 MMR 4 completed TREBA NEUSCHWANDER null, [facility] 04/07/2024 10:51:10 MMR 1 completed TREBA NEUSCHWANDER null, [facility] 04/07/2024 10:51:10 COVID-19, mRNA, LNP-S, PF, 100 mcg/0.5mL dose or 50 mcg/0.25mL dose 1 completed TREBA NEUSCHWANDER null, [facility] 04/07/2024 10:51:10 Tdap 3 completed TREBA NEUSCHWANDER null, [facility] 04/07/2024 10:51:10 Novel Ccbqyytkx-N0X0-66, all formulations 9 completed TREBA NEUSCHWANDER null, [facility] 04/07/2024 10:51:10 Hep B, unspecified formulation 9 completed TREBA NEUSCHWANDER null, [facility] 04/07/2024 10:51:11 HPV, unspecified formulation 6 completed TREBA NEUSCHWANDER null, [facility] 04/07/2024 10:51:11 Hep B, adolescent or pediatric 2 completed TREBA NEUSCHWANDER null, [facility] 04/07/2024 10:51:11 Hep B, adolescent/high risk 1 completed TREBA NEUSCHWANDER null, [facility] 04/07/2024 10:51:11 Hib (PRP-T) 1 completed TREBA NEUSCHWANDER null, [facility] 04/07/2024 10:51:11 DTaP 2 completed TREBA NEUSCHWANDER null, [facility] 04/07/2024 10:51:11 DTaP 4 completed TREBA NEUSCHWANDER null, [facility] 04/07/2024 10:51:11 DTaP 3 completed TREBA NEUSCHWANDER null, [facility] 04/07/2024 10:51:11 DTaP 1 completed ROZINA pickett, [facility] 04/07/2024 10:51:11 Hep A, unspecified formulation 6 completed ROZINA pickett, [facility] LAlbertoLAlbertoC. 04/07/2024 10:51:11 Past Encounters Encounter ID Performer Location Encounter Start Date Encounter Closed Date Diagnosis/Indication Diagnosis SNOMED-CT Code Diagnosis ICD10 Code Diagnosis Note [id number] JONELLE DOSHI [facility] ([facility]) [address] [place] [phone] 5 12/27/2023 10:01:57 12/27/2023 10:35:17 Acute right otitis media 103741398 H66.91 Start Z-pack and ofloxacin today. Encouraged tylenol/ib uprofen as needed for pain. Recommend pushing fluids and using cool mist humidifier at night. Recommend a 2 week follow up with PCP for ear re-check. If worsening condition, or no improvemen t in 5-7 days, return for further evaluation . Patient verbalizes understand ing. [id number] Aaron Hensley MD [facility] ([facility]) [address] [place] [id number] 5 04/07/2024 10:41:54 04/07/2024 12:33:50 Vaginal bleeding complicating early 073170676 O20.9 [id number] Aaron Hensley MD [facility] ([facility]) [address] [place] [id number] 5 09/13/2024 09:01:23 09/13/2024 09:57:55 Normal in multigravida 7793767352 89382 Z34.81 Past pregn gracy history of multiple miscarriages 5328067112 Z87.59 Past pregn gracy history of section 348904955 Z98.890 Anxiety 74322683 F41.9 [id number] Aaron Hensley MD [facility] ([facility]) [address] [place] [id number] 5 09/20/2024 13:39:54 09/20/2024 14:48:59 53420181 Z33.1 Vaginal bl eeding complicating early 419762252 O20.9 Gestation period, 11 weeks 78336306 Z3A.11 [id number] Aaron Hensley MD [facility] ([facility]) [address] [place] [address] [id number] 5 09/20/2024 11:56:18 09/21/2024 14:28:34 [id number] Aaron Hensley MD [facility] ([facility]) [address] [place] [phone] 5 10/23/2024 10:11:48 10/23/2024 12:42:31 Normal in multigravida 5348721953 29426 Z34.81 Gestation period, 16 weeks 49283534 Z3A.16 Vaginal discharge 234806 006 N89.8 [id number] Aaron Hensley MD [facility] ([facility]) [address] [place] [address] [id number] 5 11/20/2024 12:57:14 11/20/2024 15:10:32 Normal in multigravida 9126707457 88831 Z34.81 Gestation period, 20 weeks 97680465 Z3A.20 Anxiety 77705224 F41.9 [id number] Aaron Hensley MD [facility] ([facility]) [address] [place] [address] 96045-698 5 11/20/2024 11:51:29 11/21/2024 14:41:14 [id number] Aaron Hensley MD [facility] ([facility]) [address] [place] [id number] 5 12/18/2024 13:00:40 12/18/2024 15:55:06 Normal in multigravida 2293714592 14819 Z34.81 Gestation period, 24 weeks 375167163 Z3A.24 [id number] Aaron Hensley MD [facility] ([facility]) [address] [place] [address] [id number] 5 01/15/2025 11:28:38 01/16/2025 04:09:25 [id number] Aaron Hensley MD [facility] ([facility]) [address] [place] [address] [id number] 5 01/15/2025 11:32:21 01/15/2025 14:23:28 Normal in multigravida 0893616639 60621 Z34.81 [id number] Aaron Hensley MD [facility] ([facility]) [address] [place] [id number] 5 01/15/2025 12:51:46 01/15/2025 16:10:44 Normal in multigravida 7097274099 31519 Z34.81 Gestation period, 28 weeks 23218249 Z3A.28 [id number] Aaron Henlsey MD [facility] ([facility]) [address] [place], [place] [address] 01/29/2025 12:45:26 02/15/2025 12:20:05 Normal in multigravida 6159675847 36679 Z34.83 Gestation period, 30 weeks 44696235 Z3A.30 [id number] Aaron Hensley MD [facility] ([facility]) [address] [place] [address] [id number] 5 02/26/2025 12:41:36 02/27/2025 11:03:31 Normal in multigravida 6445594495 42588 Z34.83 Gestation period, 34 weeks 10519128 Z3A.34 Anxiety 78326271 F41.9 [id number] Aaron Hensley MD [facility] ([facility]) [address] [place], [place] [address] 5 03/06/2025 13:00:35 03/06/2025 13:59:13 Normal in multigravida 2535516540 03414 Z34.83 Gestation period, 35 weeks 58959599 Z3A.35 [id number] Aaron Hensley MD [facility] ([facility]) [address] [place] [address] [id number] 5 03/19/2025 12:47:05 03/19/2025 14:49:52 Normal in multigravida 1158757087 85726 Z34.83 Gestation period, 37 weeks 47776144 Z3A.37 [id number] Aaron Hensley MD [facility] ([facility]) [address] [place] [address] 03/26/2025 12:58:33 03/26/2025 14:34:57 Normal in multigravida 1706986709 24830 Z34.83 Gestation period, 38 weeks 51398270 Z3A.38 Health Concerns Section Related Observation LastModified by Organization Detai ls LastModified Time None Recorded Concern Status LastModified by Organization Details LastModified Time None Recorded Advance Directives Directive None Recorded Payers Insurance Date Sequence Insurance Name Policy Number Policy Guerrero Covered Member ID Guerrero Member ID Guarantor Name 03/11/2025 [place] [facility] Alfonsocherri Fox Sree [id number] Bernie Cruz 03/11/2025 1 [place] Alfonsocherri Fox Sree [id number] Bernie Cruz Notes Date Note Type Note Provider Name and Address Organization Details Recorded Time 02/26/2025 text/html ob routineRep orted bypatient.Associated Symptoms:no abdominal pain; no cramping; normal movement; no vaginal discharge; no vaginal/vulvar itching or irritation; no dysuria; no frequency; no urgency; no fever; no constipation; no visual changes; no breathlessness;contra ctions(irr);bleeding( spotting after work this weekend);nausea;emesi s;diarrhea/loose stool;edema(feet);hea dache;dizzinessNotes: heartburn, numbness in handsPt denies any alcohol, or drug use. pt smokes tobacco daily Aaron Hensley MD [address] [place] [address], [phone], [facility] L.LAlbertoCAlberto 02/27/2025 09:40:57 03/06/2025 text/html ob routineRep orted bypatient.Associated Symptoms:no abdominal pain; no cramping; no contractions; normal movement; no bleeding; no ROM; no vaginal discharge; no vaginal/vulvar itching or irritation; no dysuria; no frequency; no urgency; no fever; no constipation; no diarrhea/loose stool; no edema; no visual changes; no headache; no dizziness; no breathlessness;nausea ;emesisNotes:heartbur n, numbness in handsPt denies any alcohol, or drug use. pt smokes tobacco daily Aaron Hensley MD [address] [place] [address], [phone], [facility] 03/06/2025 13:47:50 03/19/2025 text/html ob routineRep orted bypatient.Associated Symptoms:no abdominal pain; no cramping; no contractions; normal movement; no bleeding; no vaginal discharge; no vaginal/vulvar itching or irritation; no dysuria; no frequency; no urgency; no fever; no constipation; no edema; no visual changes; no headache; no dizziness; no breathlessness;nausea ;emesis;diarrhea/loos e stoolNotes:heartburn, numbness in hands, vaginal pressurePt denies any alcohol, or drug use. pt smokes tobacco daily Aaron Hensley MD [address] [place] [address], [phone], [facility] 03/19/2025 14:42:28 03/26/2025 text/html ob routineRep orted bypatient.Associated Symptoms:normal movement; no bleeding; no vaginal discharge; no vaginal/vulvar itching or irritation; no dysuria; no frequency; no urgency; no fever; no constipation; no diarrhea/loose stool; no edema; no visual changes; no headache; no dizziness; no breathlessness;abdomi nal pain;cramping;contrac tions(irr);nausea;rufino sisNotes:heartburn, numbness in hands, vaginal pressurePt denies any alcohol, or drug use. Aaron Hensley MD [address] [place] [address], [phone], [facility] L.LAl[facility]toC. 03/26/2025 14:23:23 OBGyn Episode Ob Episode Information Episode Created Date Number of Fetuses Patient Bloodtype Patient rh Status Prepregnancy Weight lbs Domestic Partner Domestic Partner Phone Father Name Prison Teacher Status 09/13/20 24 1 CLOSED Fetus Data First Name Last Name Admitted to NICU Weight (g) Sex Living Outcome Pediatric Complications Fetus ID Race Codes Race Delivery Type 3713.55 7704 F Full Term 6444 Allison Calculation Initial Allison Date Initial Exam Date Initial Exam Provider Initial Ultrasound Date Last Menstrual Period Date Ultra Sound Weeks Gestation 0 Eighteen To Twenty Week Allison Update Ultra Sound Date Fundal Height At Umbil Quickening Date Ultra Sound Latest Weeks Gestation Final Allison Confirmed By Final Allison Confirmed Date Final Allison Date Ultra Sound Latest Days Gestation 0 0 Menstrual History Last Menstrual Date Menses Monthly On Bcp Conception Prior Menses Frequency Hcg Plus Date Menarche Onset Age Delivery Information Delivery Date Delivery Type Labor Anesthesia Weeks Gestation Incision Type Labor Labor Length Hrs Delivered By Post Complications Tubal Sterilization Discharge Date Comments 8 39 no complicat ions, [place] Discharge Information Feeding Method Contraceptive Method Maternal HG B and HCT Levels Ob Episode Information Episode Created Date Number of Fetuses Patient Bloodtype Patient rh Status Prepregnancy Weight lbs Domestic Partner Domestic Partner Phone Father Name Prison Teacher Status 09/13/20 24 1 O Positive Luan OPEN Fetus Data First Name Last Name Admitted to NICU Weight (g) Sex Living Outcome Pediatric Complications Fetus ID Race Codes Race Delivery Type [id number] Problems Problem Notes Needs repeat ltcsDesires tub al - Sign paper after 20 weeks.ltcs/tubal 04/03- at next appt Pt is scheduled for a on 04/03/25 Problem Name Start Date End Date Resolution Snomed Code Not e Normal in multigravida 10/23/2024 [id number] Allison Calculation Initial Allison Date Initial Exam Date Initial Exam Provider Initial Ultrasound Date Last Menstrual Period Date Ultra Sound Weeks Gestation 04/09/2025 09/13/2024 09/20/2024 07/03/2024 11 Eighteen To Twenty Week Allison Update Ultra Sound Date Fundal Height At Umbil Quickening Date Ultra Sound Latest Weeks Gestation Final Allison Confirmed By Final Allison Confirmed Date Final Allison Date Ultra Sound Latest Days Gestation 0 0 Pre- Flowsheet Flowsheet Date 09/13/2024 Bradford Score Blood Edema Fundus Height Fundus Units Glucose Ketones Leukocytes Nitrite Labor Signs Protein Cervic Dilation Cervic Effacement Cervic Station Type Weight in lbs Pre/Post Dialysis Refused 189.931411859472 BP Diastolic BP Location Tested BP Systolic BP Type 64 118 sitting Fetus Heart Rate Present Fetus Movement Comments OBI Flowsheet Date 09/20/2024 Bradford Score Blood Edema Fundus Height Fundus Units Glucose Ketones Leukocytes Nitrite Labor Signs Protein Cervic Dilation Cervic Effacement Cervic Station Type Weight in lbs Pre/Post Dialysis Refused BP Diastolic BP Location Tested BP Systolic BP Type Fetus Heart Rate Present Fetus Movement Comments Flowsheet Date 09/20/2024 Bradford Score Blood Edema Fundus Height Fundus Units Glucose Ketones Leukocytes Nitrite Labor Signs Protein Cervic Dilation Cervic Effacement Cervic Station Type Weight in lbs Pre/Post Dialysis Refused 186.940156003360 BP Diastolic BP Location Tested BP Systolic BP Type 70 136 Fetus Heart Rate Present A 164 Present Fetus Movement A No Comments ER follow up for vaginal ble eding Flowsheet Date 09/22/2024 Bradford Score Blood Edema Fundus Height Fundus Units Glucose Ketones Leukocytes Nitrite Labor Signs Protein Cervic Dilation Cervic Effacement Cervic Station Type Weight in lbs Pre/Post Dialysis Refused BP Diastolic BP Location Tested BP Systolic BP Type Fetus Heart Rate Present Fetus Movement Comments u/s on 09/20/24, ALLISON 04/09/25 , EGA 11.2 Flowsheet Date 10/23/2024 Bradford Score Blood Edema Fundus Height Fundus Units Glucose Ketones Leukocytes Nitrite Labor Signs Protein Cervic Dilation Cervic Effacement Cervic Station Type Weight in lbs Pre/Post Dialysis Refused 188.204526158095 BP Diastolic BP Location Tested BP Systolic BP Type 68 120 sitting Fetus Heart Rate Present A 148 Present Fetus Movement Comments NOB Flowsheet Date 10/25/2024 Bradford Score Blood Edema Fundus Height Fundus Units Glucose Ketones Leukocytes Nitrite Labor Signs Protein Cervic Dilation Cervic Effacement Cervic Station Type Weight in lbs Pre/Post Dialysis Refused BP Diastolic BP Location Tested BP Systolic BP Type Fetus Heart Rate Present Fetus Movement Comments Medicaid RA completed Flowsheet Date 11/20/2024 Bradford Score Blood Edema Fundus Height Fundus Units Glucose Ketones Leukocytes Nitrite Labor Signs Protein Cervic Dilation Cervic Effacement Cervic Station Type Weight in lbs Pre/Post Dialysis Refused BP Diastolic BP Location Tested BP Systolic BP Type Fetus Heart Rate Present Fetus Movement Comments Flowsheet Date 11/20/2024 Bradford Score Blood Edema Fundus Height Fundus Units Glucose Ketones Leukocytes Nitrite Labor Signs Protein Cervic Dilation Cervic Effacement Cervic Station 23 cm none none Negative neg Type Weight in lbs Pre/Post Dialysis Refused 196.663043177477 BP Diastolic BP Location Tested BP Systolic BP Type 72 124 sitting Fetus Heart Rate Present A 146 Present Fetus Movement A Yes Comments Fever off and on for 2 weeks , sinus pain, headache Flowsheet Date 11/21/2024 Bradford Score Blood Edema Fundus Height Fundus Units Glucose Ketones Leukocytes Nitrite Labor Signs Protein Cervic Dilation Cervic Effacement Cervic Station Type Weight in lbs Pre/Post Dialysis Refused BP Diastolic BP Location Tested BP Systolic BP Type Fetus Heart Rate Present Fetus Movement Comments Flowsheet Date 11/21/2024 Bradford Score Blood Edema Fundus Height Fundus Units Glucose Ketones Leukocytes Nitrite Labor Signs Protein Cervic Dilation Cervic Effacement Cervic Station Type Weight in lbs Pre/Post Dialysis Refused BP Diastolic BP Location Tested BP Systolic BP Type Fetus Heart Rate Present Fetus Movement Comments U/S of 11/20/24, Cephalic pre sentation, normal AFV, placenta posterior no previa or abruption, grade 1, FHT-153, EDC-04/10/25, EGA-19.6, unremarkable screening of anatomy, Flowsheet Date 12/18/2024 Bradford Score Blood Edema Fundus Height Fundus Units Glucose Ketones Leukocytes Nitrite Labor Signs Protein Cervic Dilation Cervic Effacement Cervic Station 25 cm none neg Type Weight in lbs Pre/Post Dialysis Refused 197.448233264576 BP Diastolic BP Location Tested BP Systolic BP Type 62 116 Fetus Heart Rate Present A 156 Present Fetus Movement A Yes Comments concerned about intermittent elevated BPheartburn, headaches, dizziness Flowsheet Date 01/15/2025 Bradford Score Blood Edema Fundus Height Fundus Units Glucose Ketones Leukocytes Nitrite Labor Signs Protein Cervic Dilation Cervic Effacement Cervic Station Type Weight in lbs Pre/Post Dialysis Refused BP Diastolic BP Location Tested BP Systolic BP Type Fetus Heart Rate Present Fetus Movement Comments Flowsheet Date 01/15/2025 Bradford Score Blood Edema Fundus Height Fundus Units Glucose Ketones Leukocytes Nitrite Labor Signs Protein Cervic Dilation Cervic Effacement Cervic Station Type Weight in lbs Pre/Post Dialysis Refused BP Diastolic BP Location Tested BP Systolic BP Type Fetus Heart Rate Present Fetus Movement Comments Flowsheet Date 01/15/2025 Bradford Score Blood Edema Fundus Height Fundus Units Glucose Ketones Leukocytes Nitrite Labor Signs Protein Cervic Dilation Cervic Effacement Cervic Station 28 cm trace trace Type Weight in lbs Pre/Post Dialysis Refused Weight 205.870717721304 BP Diastolic BP Location Tested BP Systolic BP Type 60 110 Fetus Heart Rate Present A 148 Fetus Movement A Yes Comments swelling in feet, numbness i n hands, heartburn, headaches, dizziness Flowsheet Date 01/29/2025 Bradford Score Blood Edema Fundus Height Fundus Units Glucose Ketones Leukocytes Nitrite Labor Signs Protein Cervic Dilation Cervic Effacement Cervic Station 30 cm none none Negative Nikunj Moya neg Type Weight in lbs Pre/Post Dialysis Refused Weight 208.655088245718 BP Diastolic BP Location Tested BP Systolic BP Type 64 120 sitting Fetus Heart Rate Present Fetus Movement A Yes Comments cramping in the evenings. he adach/dizziness, heartburn, edema feet, right hand pain, left hand numbness, Tubal consent signed Flowsheet Date 02/26/2025 Bradford Score Blood Edema Fundus Height Fundus Units Glucose Ketones Leukocytes Nitrite Labor Signs Protein Cervic Dilation Cervic Effacement Cervic Station 34 cm none none Negative Uterine Contract ions neg Type Weight in lbs Pre/Post Dialysis Refused Weight 214.587484844901 BP Diastolic BP Location Tested BP Systolic BP Type 70 136 sitting Fetus Heart Rate Present A 146 Present Fetus Movement A Yes Comments spotting after work this wee kend, nausea/vomiting, diarrhea, headache, edema feet, dizziness. Flowsheet Date 02/26/2025 Bradford Score Blood Edema Fundus Height Fundus Units Glucose Ketones Leukocytes Nitrite Labor Signs Protein Cervic Dilation Cervic Effacement Cervic Station Type Weight in lbs Pre/Post Dialysis Refused BP Diastolic BP Location Tested BP Systolic BP Type Fetus Heart Rate Present Fetus Movement Comments Pt is scheduled for a C-sect ion on 04/02/25, Anesthesia consult on 03/26/25, LEONORA Brantley, order has been faxed Flowsheet Date 03/02/2025 Bradford Score Blood Edema Fundus Height Fundus Units Glucose Ketones Leukocytes Nitrite Labor Signs Protein Cervic Dilation Cervic Effacement Cervic Station Type Weight in lbs Pre/Post Dialysis Refused BP Diastolic BP Location Tested BP Systolic BP Type Fetus Heart Rate Present Fetus Movement Comments Pt has been rescheduled for her C- section 04/03/25 [place], [place] Yadira and CS kaden order has been faxed Flowsheet Date 03/06/2025 Bradford Score Blood Edema Fundus Height Fundus Units Glucose Ketones Leukocytes Nitrite Labor Signs Protein Cervic Dilation Cervic Effacement Cervic Station 34 cm none trace Negative Type Weight in lbs Pre/Post Dialysis Refused Weight 211.950494403162 BP Diastolic BP Location Tested BP Systolic BP Type 70 132 sitting Fetus Heart Rate Present A 158 Present Fetus Movement A Yes Comments nausea/vomiting, heartburn, numbness in hands, pt has been advised of epi consult and date. Flowsheet Date 03/12/2025 Bradford Score Blood Edema Fundus Height Fundus Units Glucose Ketones Leukocytes Nitrite Labor Signs Protein Cervic Dilation Cervic Effacement Cervic Station none trace Type Weight in lbs Pre/Post Dialysis Refused Weight 213.661778658031 BP Diastolic BP Location Tested BP Systolic BP Type 70 122 Fetus Heart Rate Present A 164 Present Fetus Movement A Yes Comments vaginal pressure, N/V, heart burn, numbness in handsGroup B strep collected Flowsheet Date 03/19/2025 Bradford Score Blood Edema Fundus Height Fundus Units Glucose Ketones Leukocytes Nitrite Labor Signs Protein Cervic Dilation Cervic Effacement Cervic Station none none Negative Type Weight in lbs Pre/Post Dialysis Refused Weight 211.679177601252 BP Diastolic BP Location Tested BP Systolic BP Type 68 118 sitting Fetus Heart Rate Present A 136 Present Fetus Movement A Yes Comments N/V, heartburn, diarrhea, nu mbness in hands, vaginal pressure Flowsheet Date 03/20/2025 Bradford Score Blood Edema Fundus Height Fundus Units Glucose Ketones Leukocytes Nitrite Labor Signs Protein Cervic Dilation Cervic Effacement Cervic Station Type Weight in lbs Pre/Post Dialysis Refused BP Diastolic BP Location Tested BP Systolic BP Type Fetus Heart Rate Present Fetus Movement Comments Group B strep PositiveOB rec ords sent Flowsheet Date 03/26/2025 Bradford Score Blood Edema Fundus Height Fundus Units Glucose Ketones Leukocytes Nitrite Labor Signs Protein Cervic Dilation Cervic Effacement Cervic Station 37 cm none none Negative [place] Moya neg 1cm 30% -4 Type Weight in lbs Pre/Post Dialysis Refused Weight 212.86033427115 BP Diastolic BP Location Tested BP Systolic BP Type 68 118 sitting Fetus Heart Rate Present A 156 Present Fetus Movement A Yes Comments increased vaginal pressure,a bdominal pain and cramping, heartburn, N/V, numbness in hands Menstrual History Last Menstrual Date Menses Monthly On Bcp Conception Prior Menses Frequency Hcg Plus Date Menarche Onset Age 0907/03/2024 Genetic Screening And Infection History Question Response Note Patient's Age Will Be 35 Yea rs Or Older At Estimated Date of Delivery false Thalassemia (Macedonian, German, Mediterranean, Or Background): MCV < 80 false Neural Tube Defect (Meningom yelocele, Spina Bifida, Or Anencephaly) false Congenital Heart Defect false Down Syndrome false Florian-Sachs (eg, Adventist, Cajun, Romanian-Red Jacket) f alse Edie Disease false Sickle Cell Disease Or Trait () false Hemophilia Or Other Blood Disorders false Muscular Dystrophy false Cystic Fibrosis false [place]'s Chorea false Intellectual Disability/Autism false If Yes, Was Person Tested For Fragile X? false Other Inherited Genetic Or Chromosomal Disorder false Maternal Metabolic Disorder (eg, Type 1 Diabetes , PKU) false Patient Or Baby's Father Had A Child With Defects Not Listed Above false Recurrent Loss, Or A Stillbirth true 2 SAB, 1 ectopic Medications (including Suppl ements, Vitamins, Herbs, OTC Drugs), Illicit/Recreational Drugs, Alcohol false If Yes, Agent(s) And Strength/Dosage false Any Other Genetic History false Live With Someone With TB Or Exposed To TB false Patient Or Partner Has History Of Genital Herpes false Rash Or Viral Illness Since Last Menstrual Perio d false History Of STD, Gonorrhea, Chlamydia, HPV, Syphi lis false Other Infection History false History of HIV false History of Hepatitis false Prior GBS-infected child false Hemoglobinopathy Or Carrier false Other Structural Defect false Recent Travel History Outside of Country false Mental Retardation/Autism false Delivery Information Delivery Date Delivery Type Labor Anesthesia Weeks Gestation Incision Type Labor Labor Length Hrs Delivered By Post Complications Tubal Sterilization Discharge Date Comments Discharge Information Feeding Method Contraceptive Method Maternal HG B and HCT Levels Ob Episode Information Episode Created Date Number of Fetuses Patient Bloodtype Patient rh Status Prepregnancy Weight lbs Domestic Partner Domestic Partner Phone Father Name Prison Teacher Status 09/13/20 24 1 CLOSED Fetus Data First Name Last Name Admitted to NICU Weight (g) Sex Living Outcome Pediatric Complications Fetus ID Race Codes Race Delivery Type 3515.33 8 M Full Term [id number] Allison Calculation Initial Allison Date Initial Exam Date Initial Exam Provider Initial Ultrasound Date Last Menstrual Period Date Ultra Sound Weeks Gestation 0 Eighteen To Twenty Week Allison Update Ultra Sound Date Fundal Height At Umbil Quickening Date Ultra Sound Latest Weeks Gestation Final Allison Confirmed By Final Allison Confirmed Date Final Allison Date Ultra Sound Latest Days Gestation 0 0 Menstrual History Last Menstrual Date Menses Monthly On Bcp Conception Prior Menses Frequency Hcg Plus Date Menarche Onset Age Delivery Information Delivery Date Delivery Type Labor Anesthesia Weeks Gestation Incision Type Labor Labor Length Hrs Delivered By Post Complications Tubal Sterilization Discharge Date Comments 6 40.2 distress, emergency , [place] Discharge Information Feeding Method Contraceptive Method Maternal HG B and HCT Levels Ob Episode Information Episode Created Date Number of Fetuses Patient Bloodtype Patient rh Status Prepregnancy Weight lbs Domestic Partner Domestic Partner Phone Father Name Prison Teacher Status 09/13/20 24 1 CLOSED Fetus Data First Name Last Name Admitted to NICU Weight (g) Sex Living Outcome Pediatric Complications Fetus ID Race Codes Race Delivery Type 2948.34 8 F Full Term [id number] Allison Calculation Initial Allison Date Initial Exam Date Initial Exam Provider Initial Ultrasound Date Last Menstrual Period Date Ultra Sound Weeks Gestation 0 Eighteen To Twenty Week Allison Update Ultra Sound Date Fundal Height At Umbil Quickening Date Ultra Sound Latest Weeks Gestation Final Allison Confirmed By Final Allison Confirmed Date Final Allison Date Ultra Sound Latest Days Gestation 0 0 Menstrual History Last Menstrual Date Menses Monthly On Bcp Conception Prior Menses Frequency Hcg Plus Date Menarche Onset Age Delivery Information Delivery Date Delivery Type Labor Anesthesia Weeks Gestation Incision Type Labor Labor Length Hrs Delivered By Post Complications Tubal Sterilization Discharge Date Comments 2 39 No complicat ions, -Sheron Discharge Information Feeding Method Contraceptive Method Maternal HG B and HCT Levels
--- OUTSIDE RECORDS SUMMARY | 2025-04-03 04:55 | XMS_ITS | Clinical Summary ---
Author Organization [facility] Address [address] [place] [address] Phone Care Team Providers Care [employer] Liaison Officer Name Role Phone Unavailable Primary Care Provider Unavailabl e Allergies Active Allergy Reactions Criticality Noted Date Comments Amoxicillin Anaphylaxis High 11/05/2015 Penicillins Anaphylaxis High 11/05/2015 Medications [id number] (P-D ANTIONE PLUS) TabletIndication s:Supervision of low-risk , first trimester Take 1 Tablet by mouth daily. 90 Tablet 3 03/25/2021 Active Active Problems Estimated Date of Delivery Comme nts Yes 04/09/2025 No known active problems Encounters Date Type Department Care Team Description 03/27/2025 External Device Data [facility] ABSTRACTION Provider, Abstract 03/01/2025 External Device Data [facility]STRACTION Provider, Abstract 03/01/2025 External Device Data [facility]STRACTION Provider, Abstract 02/28/2025 External Device Data [facility]STRACTION Provider, Abstract 02/28/2025 External Device Data [facility] ABSTRACTION Provider, Abstract 02/27/2025 External Device Data [facility] ABSTRACTION Provider, Abstract 01/23/2025 External Device Data [facility] ABSTRACTION Provider, Abstract from Last 3 Months Social History Tobacco Use Types Packs/Day Years Used Date Smoking Tobacco: Never Passive Smoke Exposure: Never Smokeless Tobacco: Never Tobacco Cessation:Counseling Given: Yes Alcohol Use Standard Drinks/Week Comments No 0 (1 standard drink = 0.6 oz pur e alcohol) Estimated Date of Delivery Comme nts Yes 04/09/2025 Sex and Gender Information Value Date Recorded Sex Assigned at Not on file Legal Sex Female 1:07 AM BAND PRESSER Gender Identity Not on file Sexual Orientation Not on file Last Filed Vital Signs Vital Sign Reading Time Taken Comments Blood Pressure 108/62 08/23/2024 8:30 AM BAND PRESSER Pulse 100 08/23/2024 8:30 AM BAND PRESSER Temperature 36.8 C (98.3 F) 08/23/2024 8:30 AM BAND PRESSER Respiratory Rate 18 08/23/2024 8:30 AM BAND PRESSER Oxygen Saturation 100% 08/23/2024 8:30 AM BAND PRESSER Inhaled Oxygen Concentration - - Weight 86.2 kg (190 lb) 08/23/2024 8:30 AM BAND PRESSER Height 172.7 cm (5' 8 ) 08/23/2024 8:30 AM BAND PRESSER Body Mass Index 28.89 08/23/2024 8:30 AM BAND PRESSER Plan of Treatment Health Maintenance Due Date Last Done Comments HPV VACCINES (2 - 3-dose series) 06/26/2016 05/29/20 16 CERVICAL CANCER SCREENING 2020 HPV/Cotest (21-29) 2020 PAP SMEAR 2020 DTAP/TDAP/TD VACCINES (6 - T d or Tdap) 05/17/2023 05/17/2013, 12/06/2003, 05/16/2003, Additional history exists COVID-19 Vaccine (2 - 2023-2 5 season) 2024 09/14/2021 HEPATITIS B VACCINES Completed 10/28/2001, 08/11/2001, 1999 INFLUENZA VACCINE Completed 08/23/2024, , 10/01/2021 RSV VACCINE (60+ or ) (No Doses Required) Completed Insurance MEDICAID [place]
[2025-04-03] MEDS: sodium chloride 0.9% 1,000 ML 125 ML IV (05:39)
[2025-04-03 05:42] LABS: Basophils # 0.1 10^3/uL (0.0-0.1); Basophils % 0.3 %; Eosinophils # 0.5 10^3/uL (0.0-0.8); Eosinophils % 2.7 %; Lymphocytes # 3.3 10^3/uL (0.8-4.8); Lymphocytes % 18.6 %; Mean Corpuscular HGB Conc 33.7 g/dL (30-55); Mean Corpuscular Hemoglobin 29.5 pg (27-33); Mean Corpuscular Volume 87.5 fl (85-98); Mean Platelet Volume 9.4 fL (7.4-10.4); Monocytes % 5.8 %; Neutrophils # 12.54 10^3/uL (1.8-7.7); Neutrophils % 71.6 %; Nucleated Red Blood Cells % 0 %; Platelet Count 298 10^3/cmm (157-399); Red Cell Distribution Width 14.4 % (12.1-15.1); White Blood Count 17.54 10^3/uL (3.29-11.43)
--- NOTE | 2025-04-03 06:24 | P.HP_ITS ---
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 The patient's due date is based on a first trimester ultrasound. Her has otherwise been relatively unremarkable. She has smoked throughout her . She has had some marijuana use. Present Details : 7 Para: 3 Labs Rubella: Equivocal RPR: Negative GBS: Positive Review of Systems 2 General: Reports: 10 or more systems reviewed and unremarkable except in HPI and below Const: Reports: fatigue; Denies: fever(s) Eyes: Denies: change in vision Card: Denies: chest pain Musc: Reports: back pain [place]/Lymph: Denies: easy bruising Medications/Allergies Home Medications ?Medication ?Instructions ?Recorded ?Confirmed ?Last Taken ?Type 1 tab PO DAILY 05/28/2203/1204/02/25 20:00 History escitalopram oxalate 10 mg tablet 10 mg PO DAILY 04/0304/03/25 04/02/25 20:00 History Allergies Allergy/AdvReac Type Severity Reaction Status Date / Time amoxicillin Allergy Severe throat Verified 04/03/25 05:18 swelling--never tried Keflex Penicillins Allergy Severe throat Verified 04/03/25 05:18 swelling 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 Status post laparoscopy 04/17/2021---laparoscopic left partial salpingectomy by Dr. Rod at [facility]. Dense adhesions of the bladder onto the uterus and the uterus was adherent to the anterior abdominal wall. Ovary was adherent on the right side ovarian fossa but fallopian tube was normal. Left fallopian tube was adherent to the pelvic sidewall but left ovary was normal. Family History Denies family history of Colon cancer Ovarian cancer Diabetes Heart disease Hypercholesteremia Breast cancer Hypertension Uterine cancer Thyroid disease Stroke History History History 2 7 Term 3 0 Miscarriages/Ectopic 3 Living Children 3 Vitals/I&O/Wt Last Vital Signs Temp 96.3 F L 04/03/25 05:13 Pulse 94 04/03/25 06:13 Resp 17 04/03/25 05:01 BP 131/66 04/03/25 06:13 O2 Del Method Room Air 04/03/25 05:01 Weight last 48 hrs Weight 212 lb 8 oz Weight 212 lb 8 oz Physical Exam 2 Const: COMMON NORMALS: patient oriented x3 and alert HENMT: COMMON NORMALS: moist oral mucous membranes HEAD & SCALP: normal to inspection Chest: COMMONS NORMALS: normal inspection of the chest Resp: COMMON NORMALS: clear to auscultation bilaterally AUSCULTATION: clear to auscultation bilaterally Cardio: COMMON NORMALS: regular rate and regular rhythm RATE: regular rate RHYTHM: regular rhythm GI: INSPECTION: Yes normal to inspection and Yes other (Gravid) Extremity: COMMON NORMALS: normal to inspection GENERAL: Yes edema (Trace) Neuro: COMMON NORMALS: patient oriented x3, moves all extremities and no sensory deficits noted SENSORIUM/ORIENTATION: Yes alert Psych: COMMON NORMALS: mental status grossly normal Skin: COMMON NORMALS: no rashes or lesions noted GENERAL SKIN EXAM: no rashes or lesions noted Data 04/03/25 05:17 Results Labs OB ([facility]): 2 Obstetrics 08/17/24 Blood Type O Positive Today Antibody Screen Negative Today Hct, (36-47) 35.0 % L Today Hgb, (11.27-16.99) 11.80 g/dL Today Rho(D) Type Rh positive Today Plt Count, (157-399) 298 10^3/cmm Today Ser , Semi-Qnt 13460.00 mIU/mL 09/14/24 A&P Assessment and plan (1) 39 weeks gestation of : I discussed with the patient and her significant other the risks of bleeding, infection, damage to intra-abdominal organs. We also discussed her increased risk because of scar tissue that open previously documented when her ectopic surgery was performed. We also discussed the possibility that her left tube may not be able to be tied depending on scar tissue as well. They understand if I cannot ligate her left tube, that I cannot guarantee that the tubal will have usual risk of . She and her significant other have no further questions and wished to proceed. (2) Hx of section: (3) Sterilization consult: (4) History of ectopic : PDMP PDMP Reviewed: Not Reviewed Attestations 2 Medical Necessity Statement*: I anticipate routine and post care. Coding Level of Care Code Acute Code for Chg Fwd Diagnoses 39 weeks gestation of Z3A.39 Hx of section Z98.891 Sterilization consult Z30.09 History of ectopic Z87.59
[2025-04-03] MEDS: famotidine 20 mg/2 mL INJ IVP (06:40)
[2025-04-03] MEDS: citric acid-sodium citrate 30 mL UDC PO (06:40)
[2025-04-03] MEDS: metoclopramide 5 mg/mL SDV 2 mL 10 MG IVP (06:40)
--- NOTE | 2025-04-03 06:43 | P.ANESUD_ITS ---
Pre-Anesthetic Update Pre-Anesthetic Assessment: Date of Surgery/Procedure: 04/03/25 Preop Teresa gnosis: IUP Proposed Procedure: Operation Date: 04/03/25 07:20 Proposed Procedures p Section With Tubal(Bilateral) - Aaron Hensley MD Any changes to Pre-Anesthetic Assessment?: No Last Intake: >8 hours Labs Last 48hrs: Short CBC 04/03/25 Range/Units 05:17 WBC 17.54 H (3.29-11.43) 10^ 3/uL Hgb 11.80 (11.27-16.99) g/ dL Hct 35.0 L (36-47) % MCV 87.5 (85-98) fl Plt Count 298 (157-399) 10^3/c mm Neut % (Auto) 71.6 % Neut # (Auto) 12.54 H (1.8-7.7) 10^3/u L Blood Bank 04/03/25 05:17 Blood Type O Positive Rho(D) Type Rh positive Antibody Screen Negative Vitals: Temperature 96.3 F L 04/03/25 05:13 Pulse Rate 89 04/03/25 06:35 Pulse Rhythm Regular 04/03/25 04:51 Pulse Strength 3+ Normal 04/03/25 04:51 Respiratory Rate 17 04/03/25 05:01 Respiratory Effort Spontaneous, Non- Labored, Easy 04/03/25 04:51 Respiratory Depth Normal 04/03/25 04:51 Respiratory Patter n Normal 04/03/25 04:51 Blood Pressure 120/58 04/03/25 06:35 Oxygen Delivery Me thod Room Air 04/03/25 05:01 Exam: Pre-Anes Outpt Exam: alert, oriented x 3, clear to auscultation bilaterally and regular rate & rhythm
[2025-04-03] MEDS: dextrose 5%-lactated ringers 1,000 ML 125 ML IV ×2 (06:45→17:54)
--- NOTE | 2025-04-03 08:14 | PM.OP ---
Operative Report Date of procedure: April 03, 2025 Pre-op diagnosis: 1. 24-year-old 7 para 3-0-3-3 at 39 weeks with a history of 3 previous C-sections 2. Desire sterilization Post-op diagnosis: Same Procedure done: Repeat low-transverse section with bilateral tubal ligation Specimens removed/disposition: 1. Male with a weight of 3060 g and Apgars of 9, 9 2. Placenta with a three-vessel cord delivered intact 3. Bilateral fallopian tube segments with the right segment being tagged. Of note, left segment was not confirmed fallopian tube. Due to scar tissue, absence of fimbria, and probable dilation of fallopian tube anatomy was inconclusive. Pathology: 1. Bilateral fallopian tube segments with the right segment being tagged Surgeon: Aaron Hensley MD Estimated blood loss: 600 Complications: None Procedure: The patient was brought back to the operating room where she was prepped and draped in usual sterile fashion. Anesthesia was found to be adequate. A lower transverse skin incision was then made with a #10 blade. I then dissected down to the underlying subcutaneous tissue until arriving at the prerectal fascia. The fascia was then nicked with the scalpel bilaterally. The fascial incisions were then carried laterally with Tao scissors. Attention was then turned to the superior aspect of the incision which was grasped with kochers and tented up away from the underlying rectus abdominis muscles. The muscles were then dissected away from the fascia manually, and with a scalpel. Attention was then turned to the inferior aspect of the incision, and the fascia was dissected away from the underlying muscle in similar fashion. The rectus abdominis muscles were then spread manually. The peritoneum was entered manually. Adhesions were noted on the lower anterior segment of the uterus. These were carefully lysed manually and with the Bovie with care to avoid bladder tissue. Excellent visualization of the uterus was noted. A lower transverse uterine incision was then made with a #10 blade. Upon arriving at the intrauterine cavity, the uterine incision was then extended manually. The was noted to be in vertex position. The baby was delivered without difficulty. After delivery of the head, the mouth and nose were suctioned at the site of the incision. There was no meconium. There was no nuchal cord. The remainder of the body was then delivered and placed on the abdomen. The cord was cut and clamped. The baby was then handed to the waiting nurse. The placenta was removed intact. The uterus was externalized. The intrauterine cavity was cleansed of any remaining debris. The uterine incision was reapproximated in 2 layers. The first layer was performed with 0 Vicryl in a running locked stitch. The second layer was an imbricating stitch also using 0 Vicryl. The uterus was replaced into the abdomen. The peritoneum was then irrigated with warm saline. I reexamined the uterine incision and found it to be hemostatic. Attention was then turned to the fallopian tubes. The right fallopian tube was ligated cut and cauterized in a modified Rafita fashion. It was immediately tagged. Attention was then turned to the left fallopian tube. Unfortunately, there was a fair amount of scar tissue, and there was no fimbria, likely due to previous surgery. There appeared to be dilated segment of the fallopian tube, but it could not be definitively identified. I discussed with the patient prior to the surgery that this might be a concern. I chose to ligate the segment. The segment was ligated with 0 chromic with a double ligation on each side of the excision. The presumed fallopian tube was then cut and cauterized. Excellent hemostasis was noted. The peritoneum was then irrigated. The uterine incision and the tubal ligations were revisualized and excellent hemostasis once again was noted. The rectus abdominis muscles were then reapproximated using 0 Vicryl in a running stitch. The fascia was then reapproximated using 0 Vicryl in running stitch. The subcutaneous tissue was then reapproximated using 0 Vicryl in a running stitch. The skin was reapproximated using nita. A sterile dressing was placed. All counts were correct x2. Both the mother and baby were in stable condition.
--- NOTE | 2025-04-03 10:32 | US_ITS ---
WS: [id number] Limited abdomen ultrasound. HISTORY: Hypotension, status post . Increased complex fluid noted adjacent to the liver and in Morison's pouch. Additional smaller pockets of fluid in the remaining quadrants. Low-level echoes within the fluid. US/US abdomen limited [id number] IMPRESSION: Small amount of complex fluid within the abdomen highly suspicious for intraper itoneal hemorrhage. Notified Aaron Hensley MD at 04/03/2025 10:55 AM.
[2025-04-03] MEDS: dextrose 5%-lactated ringers 1,000 ML 999 ML IV ×2 (10:34→10:52)
--- NOTE | 2025-04-03 10:50 | P.ANESUD_ITS ---
Pre-Anesthetic Update Pre-Anesthetic Assessment: Date of Surgery/Procedure: 04/03/25 Preop Teresa gnosis: IUP Proposed Procedure: Operation Date: 04/03/25 07:20 Proposed Procedures p Section With Tubal(Bilateral) - Aaron Hensley MD Operation Date: 04/03/25 11:00 Proposed Procedures p Exploratory Laparotomy(Not Applicable) - Aaron Hensley MD Any changes to Pre-Anesthetic Assessment?: Yes Changes from Pre- Anesthetic Assessment: Patient with post-op bleeding, brought emergently to OR verbal consent Last Intake: Intake Last Liquid Date 04/02/25 Last Solid Date 04/02/25 Labs Last 48hrs: Short CBC 04/03/25 04/03/25 04/03/25 Range/Units 05:17 10:30 10:47 WBC 17.54 H Cancelled 18.63 H (3.29-11.43) 10^ 3/uL Hgb 11.80 Cancelled 7.40 L D (11.27-16.99) g/ dL Hct 35.0 L Cancelled 22.6 L D (36-47) % MCV 87.5 Cancelled 91.1 (85-98) fl Plt Count 298 Cancelled 237 (157-399) 10^3/c mm Neut % (Auto) 71.6 % Neut # (Auto) 12.54 H (1.8-7.7) 10^3/u L Blood Bank 04/03/25 05:17 Blood Type O Positive Rho(D) Type Rh positive Antibody Screen Negative Vitals: Temperature 96.3 F L 04/03/25 05:13 Temperature Source Axillary 04/03/25 04:53 Pulse Rate 118 H 04/03/25 13:57 Pulse Rhythm Regular 04/03/25 04:51 Pulse Strength 3+ Normal 04/03/25 04:51 Respiratory Rate 15 04/03/25 09:24 Respiratory Effort Spontaneous, Non- Labored, Easy 04/03/25 04:51 Respiratory Depth Normal 04/03/25 04:51 Respiratory Patter n Normal 04/03/25 04:51 Blood Pressure 95/52 04/03/25 13:57 Pulse Oximetry 100 04/03/25 13:55 Oxygen Delivery Me thod Room Air 04/03/25 06:27 Exam: Pre-Anes Outpt Exam: alert, oriented x 3, clear to auscultation bilaterally and regular rate & rhythm (tachy)
[2025-04-03 10:52] LABS: Hematocrit 22.6 % (36-47); Mean Corpuscular HGB Conc 32.7 g/dL (30-55); Mean Corpuscular Hemoglobin 29.8 pg (27-33); Mean Corpuscular Volume 91.1 fl (85-98); Mean Platelet Volume 9.5 fL (7.4-10.4); Platelet Count 237 10^3/cmm (157-399); Red Blood Count 2.48 10^6/uL (3.85-5.65); Red Cell Distribution Width 14.5 % (12.1-15.1); White Blood Count 18.63 10^3/uL (3.29-11.43)
[2025-04-03] MEDS: lactated ringers 1,000 ML 999 ML IV (10:55)
--- NOTE | 2025-04-03 11:52 | P.OP_ITS ---
Operative Report Date of procedure: April 03, 2025 Pre-op diagnosis: 1. Status post and bilateral tubal ligation 2. Postoperative hemorrhage Post-op diagnosis: 1. Hemorrhage from left tubal ligation Procedure done: Ligation of left fallopian tube/scar tissue hemorrhage Specimens removed/disposition: None Surgeon: Aaron Hensley MD Estimated blood loss (mL): 1,500 Brief History: I was contacted by the nurses because my patient had a sudden drop in blood pressure. Prior to that point her urine output had been 150 cc over about an hour. When I arrived in the room about 3 minutes later the patient was feeling better. I placed the patient in Trendelenburg. We started another IV. Anesthesia was contacted. Her blood pressure continued to fluctuate with systolic of 70s over 40s. But her pulse remained in the 60-80 range. She is given neosynephrine multiple times by the anesthesia providers. Despite that her blood pressure only increased into the 80s. I ordered a stat CBC, and to ty pe and cross 2 units stat. I also ordered a stat abdominal ultrasound. The ultrasound demonstrated about 300 cc of fluid around the liver since the patient was in Trendelenburg. There were no other notable findings. She was bolused a liter of crystalloid. The CBC came back with a hemoglobin of 7.4 which was down from 11.8 previous to her . At that time the decision was made to proceed with stat surgery. Procedure: The patient was brought back to the operating room where she was prepped and draped in the usual sterile fashion. The patient was placed under general anesthesia A lower transverse skin incision was once again opened by removing nita.. The stitches in both the subcutaneous tissue, the fascia, and the rectus abdominis muscles were removed. A large amount of blood and clots were noted in the peritoneum. After removing some of the clots and loose blood in the peritoneum, I examined the uterine incision, as well as both of the tubal ligations. The left tubal ligation was noted to have an active venous bleed. I grasped the bleeding vessel with a curved hemostat. I then ligated it by tacking it against the uterus with 0 Vicryl with 3 different stitches. No bleeding was noted after ligating the bleeding vessel. We then continued to clear out clots and blood from the peritoneum. Ultimately, we then irrigated the peritoneum with about 2000 cc of fluid. We once again reexamined the previously bleeding fallopian tube as well as the other tubal ligation and the uterine incision. Once again, excellent hemostasis was noted. The rectus abdominis muscles were then reapproximated using 0 Vicryl in a running stitch. The fascia was then reapproximated using 0 Vicryl in running stitch. The subcutaneous tissue was reapproximated using 0 Vicryl in a running stitch. The skin was reapproximated using nita. A sterile dressing was placed. All counts were correct x2. The patient was in stable condition. She received 2 units of blood during surgery. Her blood pressure had improved to a systolic blood pressure of 90s over 100 with a diastolic blood pressure in the 40s to 60s. Her pulse continued to be remarkably low considering her blood loss.
--- NOTE | 2025-04-03 12:34 | PC.NURSE ---
in OB OR 2
[2025-04-03] MEDS: HYDROcodone-acetaminophen 5-325 mg Tablet PO (12:55)
--- NOTE | 2025-04-03 14:00 | ANE.PACU2 ---
Inpatient post-anesthesia follow up: Airway intact: Yes Vital signs: Temperature 96.3 F Pulse Rate 118 Respiratory Rate 15 Blood Pressure 95/52 Pulse Oximetry 100 Oxygen Delivery Me thod Room Air Oxygen Flow Rate Fraction of Inspir ed Oxygen Hydration adequate: Yes Nausea and vomiting: No Pain level: 1 Mental status: Baseline
[2025-04-03 14:15] LABS: Basophils # 0.1 10^3/uL (0.0-0.1); Basophils % 0.2 %; Eosinophils # 0.1 10^3/uL (0.0-0.8); Eosinophils % 0.7 %; Hematocrit 28.6 % (36-47); Lymphocytes # 2.2 10^3/uL (0.8-4.8); Lymphocytes % 10.7 %; Mean Corpuscular HGB Conc 33.2 g/dL (30-55); Mean Corpuscular Hemoglobin 28.5 pg (27-33); Mean Corpuscular Volume 85.9 fl (85-98); Mean Platelet Volume 9.3 fL (7.4-10.4); Monocytes # 1.2 10^3/uL (0.2-0.9); Monocytes % 5.7 %; Neutrophils # 16.58 10^3/uL (1.8-7.7); Neutrophils % 81.4 %; Nucleated Red Blood Cells % 0 %; Platelet Count 195 10^3/cmm (157-399); Red Blood Count 3.33 10^6/uL (3.85-5.65); Red Cell Distribution Width 14.9 % (12.1-15.1); White Blood Count 20.39 10^3/uL (3.29-11.43)
[2025-04-03] MEDS: sodium chloride 0.9% 500 ML 999 ML IV (14:16)
[2025-04-03] MEDS: ketorolac 30 mg/mL INJ IVP ×2 (14:28→20:51)
[2025-04-03 17:15] LABS: Basophils % 0.2 %; Eosinophils # 0.1 10^3/uL (0.0-0.8); Eosinophils % 0.5 %; Hematocrit 26.6 % (36-47); Lymphocytes # 2.8 10^3/uL (0.8-4.8); Lymphocytes % 15.3 %; Mean Corpuscular HGB Conc 33.8 g/dL (30-55); Mean Corpuscular Hemoglobin 28.9 pg (27-33); Mean Corpuscular Volume 85.5 fl (85-98); Mean Platelet Volume 9.3 fL (7.4-10.4); Monocytes # 1.3 10^3/uL (0.2-0.9); Monocytes % 6.9 %; Neutrophils # 14.01 10^3/uL (1.8-7.7); Nucleated Red Blood Cells % 0 %; Platelet Count 195 10^3/cmm (157-399); Red Blood Count 3.11 10^6/uL (3.85-5.65); Red Cell Distribution Width 15.3 % (12.1-15.1); White Blood Count 18.45 10^3/uL (3.29-11.43)
[2025-04-03] MEDS: simethicone 80 mg Chew PO (19:27)
[2025-04-03] MEDS: docusate sodium 100 mg Capsule PO (20:51)
[2025-04-03] MEDS: ferrous sulfate EC 325 mg Tablet PO (20:52)
[2025-04-04] VITALS (30 sets, daily range): BP systolic 97–131; BP diastolic 46–65; PULSE 47–150; TEMP 36.6–36.9; O2SAT 81–100
[2025-04-04] MEDS: HYDROcodone-acetaminophen 5-325 mg Tablet PO ×4 (00:38→18:51)
[2025-04-04] MEDS: sodium chloride 0.9% 500 ML 999 ML IV (00:43)
[2025-04-04] MEDS: hyDROXYzine 25 mg Capsule 50 MG PO (00:47)
[2025-04-04] MEDS: ketorolac 30 mg/mL INJ IVP (03:30)
[2025-04-04 04:59] LABS: Basophils % 0.2 %; Eosinophils # 0.1 10^3/uL (0.0-0.8); Eosinophils % 0.6 %; Hematocrit 21.8 % (36-47); Lymphocytes # 1.7 10^3/uL (0.8-4.8); Lymphocytes % 12.2 %; Mean Corpuscular HGB Conc 33.5 g/dL (30-55); Mean Corpuscular Hemoglobin 28.5 pg (27-33); Mean Corpuscular Volume 85.2 fl (85-98); Mean Platelet Volume 9.4 fL (7.4-10.4); Monocytes % 7.2 %; Neutrophils # 10.65 10^3/uL (1.8-7.7); Neutrophils % 79.1 %; Nucleated Red Blood Cells % 0 %; Platelet Count 181 10^3/cmm (157-399); Red Blood Count 2.56 10^6/uL (3.85-5.65); Red Cell Distribution Width 15.8 % (12.1-15.1); White Blood Count 13.48 10^3/uL (3.29-11.43)
--- NOTE | 2025-04-04 06:46 | PM.OBGYPN ---
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 She had been having pain in her right shoulder extending down her right lateral back. She has also having some incisional pain today as well that is adequately managed with pain control. She has passed gas. Her vaginal bleeding has been minimal. Her urine output since midnight has been marginal. Otherwise her vitals have been improved with both blood pressure and pulse within normal limits. Labor: Amniotic Membrane Status: Intact Monitor Mode: Palpation Contraction Pattern: Irregular Vitals/I&O/Wt Last Vital Signs Temp 98.5 F 04/04/25 04:57 Pulse 77 04/04/25 06:19 Resp 15 04/03/25 12:25 BP 105/50 04/04/25 06:19 Pulse Ox 81 L 04/04/25 01:21 O2 Del Method Oxymask 04/03/25 12:15 04/03/25 04/03/25 04/04/25 14:59 22:59 06:59 Intake Total 3849.65 / 3849.65 0 / 3849.65 1200 / 5049.65 Output Total 2595 / 2595 280 / 2875 210 / 3085 Balance 1254.65 / 1254.65 -280 / 974.65 990 / 1964.65 Weight last 48 hrs Weight 212 lb 8 oz Weight 212 lb 8 oz Physical Exam Narrative: She is in no acute distress Lungs are clear auscultation bilaterally Her heart has a regular rate and rhythm Her fundus is below the umbilicus and firm Her dressing is clean, dry and intact Her extremities have trace edema Urinary Catheter Management: Mark: Cath Placed During This Visit: yes Reason for Continuing Indwelling Catheter: Accurate Measurement of Urinary Output in Critically Ill Patients Urinary Catheter Date of Insertion: 04/03/25 Urinary Catheter Time of Insertion: 07:06 Data 04/04/25 04:54 A&P Assessment and plan (1) Status post : Overall, the patient appears to have been doing much better since her surgery to correct the postsurgical bleeding. Her vitals been stable overall. Her urine output since midnight has been marginal. She has received a bolus of 500 cc. Her hemoglobin also dropped to 7.3 which may be delusional due to the crystalloid she has received. Her initial CBC was shortly after receiving her blood products and may have been inaccurate representation of her hemoglobin at that time. I am going to recheck her CBC around 10 AM. Since we have given her more crystalloids, there might be a little drift in her hemoglobin, but I do not anticipate more than that. We will continue carefully monitoring her both her vitals and her hemoglobin until we are confident there are no more concerns. (2) Postoperative hemorrhage: PDMP PDMP Reviewed: Not Reviewed Attestations Medical Necessity Statement*: Due to the patient's post operative bleed, the patient will be staying at least until tomorrow evening and possibly 2 more days, to adequately assess her hemodynamic stability. Coding Level of Care Code Acute Code for Chg Fwd Diagnoses Status post Z98.891 Postoperative hemorrhage
[2025-04-04] MEDS: escitalopram 10 mg Tablet PO (09:23)
[2025-04-04] MEDS: PRENATAL VIT NO.130/IRON/FOLIC 1 EACH TABLET PO (09:23)
[2025-04-04] MEDS: simethicone 80 mg Chew PO (09:23)
[2025-04-04] MEDS: ferrous sulfate EC 325 mg Tablet PO ×2 (09:23→18:49)
[2025-04-04] MEDS: docusate sodium 100 mg Capsule PO ×2 (09:23→18:49)
[2025-04-04] MEDS: dextrose 5%-lactated ringers 1,000 ML 125 ML IV (09:25)
[2025-04-04 10:23] LABS: Basophils % 0.2 %; Eosinophils # 0.1 10^3/uL (0.0-0.8); Eosinophils % 1.1 %; Hematocrit 21.2 % (36-47); Lymphocytes # 1.9 10^3/uL (0.8-4.8); Lymphocytes % 17.2 %; Mean Corpuscular HGB Conc 33.5 g/dL (30-55); Mean Corpuscular Hemoglobin 29.1 pg (27-33); Mean Corpuscular Volume 86.9 fl (85-98); Mean Platelet Volume 9.6 fL (7.4-10.4); Monocytes # 0.8 10^3/uL (0.2-0.9); Monocytes % 7.3 %; Neutrophils # 8.02 10^3/uL (1.8-7.7); Nucleated Red Blood Cells % 0 %; Platelet Count 181 10^3/cmm (157-399); Red Blood Count 2.44 10^6/uL (3.85-5.65); Red Cell Distribution Width 15.9 % (12.1-15.1); White Blood Count 10.98 10^3/uL (3.29-11.43)
[2025-04-04] MEDS: ibuprofen 800 mg tablet PO ×2 (16:12→21:00)
[2025-04-04 18:20] LABS: Basophils % 0.2 %; Eosinophils # 0.2 10^3/uL (0.0-0.8); Eosinophils % 1.4 %; Hematocrit 23.2 % (36-47); Lymphocytes # 2.2 10^3/uL (0.8-4.8); Lymphocytes % 18.1 %; Mean Corpuscular HGB Conc 33.2 g/dL (30-55); Mean Corpuscular Hemoglobin 28.6 pg (27-33); Mean Corpuscular Volume 86.2 fl (85-98); Mean Platelet Volume 9.4 fL (7.4-10.4); Monocytes # 0.8 10^3/uL (0.2-0.9); Monocytes % 6.6 %; Neutrophils # 8.74 10^3/uL (1.8-7.7); Neutrophils % 72.6 %; Nucleated Red Blood Cells % 0 %; Platelet Count 196 10^3/cmm (157-399); Red Blood Count 2.69 10^6/uL (3.85-5.65); White Blood Count 12.04 10^3/uL (3.29-11.43)
[2025-04-05] MEDS: HYDROcodone-acetaminophen 5-325 mg Tablet PO ×3 (00:30→08:43)
[2025-04-05 00:32] VITALS: BP 120/59; PULSE 110
[2025-04-05 05:02] VITALS: BP 118/68; PULSE 117
--- NOTE | 2025-04-05 06:47 | PM.OBGYDC ---
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 Her was unremarkable other than the fact that she had a large amount of scar tissue. Few hours after her she suddenly had a drop in blood pressure, and after further evaluation it was determined that she was having some peritoneal bleeding. She was brought back to surgery where she was found to have bleeding associated with her left tubal ligation. It was ligated securely intact out of the uterus prior to closing the patient back up and ending surgery. She was also given 2 units of blood. The patient's stay was relatively unremarkable from that point. She passed flatus. Her diet was advanced. Her pain was well-controlled. She was able to ambulate without difficulty. Her vitals remained stable to the remainder of her hospital stay. There are no further signs of bleeding. After her blood transfusion, her hemoglobin briefly spiked to 9, before stabilizing the 7.1-7.7 range. Information Peripartum Data: Delivery Method: Physical Exam Narrative: She is in no acute distress Lungs are clear auscultation bilaterally Her heart has a regular rate and rhythm Her fundus is below the umbilicus and firm Her dressing is clean, dry and intact Her extremities have trace edema Urinary Catheter Management: Mark: Cath Placed During This Visit: yes, but has since been removed by the nurse Reason for Continuing Indwelling Catheter: Decision to DC Catheter Urinary Catheter Date of Insertion: 04/03/25 Urinary Catheter Time of Insertion: 07:06 Date Urinary Catheter Removed: 04/04/25 Time Urinary Catheter Discontinued: 11:00 History History History 7 Term 3 0 Miscarriages/Ectopic 3 Living Children 3 Discharge Data Studies Completed and Pending Completed Studies During Hospitalization Category Date Time Status US abdomen limited 96076 Stat Ultrasound 04/03/25 10:32 Completed Pending at discharge Category Date Time Status High Risk PP Hemorrhage Stat Lab 04/03/25 05:17 Received PACKED CELLS [Leukocyte Reduced RBC] Stat Lab 04/03/25 05:17 Results Type and Screen Routine Lab 04/03/25 05:17 Results Pathology: Surgical [PTH] Routine Pth 04/03/25 09:41 Received Radiology Impressions Abdomen Ultrasound 04/03/25 10:32 IMPRESSION: Small amount of complex fluid within the abdomen highly suspicious for intraperitoneal hemorrhage. Notified Aaron Hensley MD at 04/03/2025 10:55 AM. Laboratory Results WBC 12.04 10^3/uL (3.29-11.43) H 04/04/25 18:05 Corrected WBC Cancelled 04/03/25 10:30 RBC 2.69 10^6/uL (3.85-5.65) L 04/04/25 18:05 Hgb 7.70 g/dL (11.27-16.99) L 04/04/25 18:05 Hct 23.2 % (36-47) L 04/04/25 18:05 MCV 86.2 fl (85-98) 04/04/25 18:05 MCH 28.6 pg (27-33) 04/04/25 18:05 MCHC 33.2 g/dL (30-55) 04/04/25 18:05 RDW 16.0 % (12.1-15.1) H 04/04/25 18:05 Plt Count 196 10^3/cmm (157-399) 04/04/25 18:05 MPV 9.4 fL (7.4-10.4) 04/04/25 18:05 Neut % (Auto) 72.6 % 04/04/25 18:05 Lymph % (Auto) 18.1 % 04/04/25 18:05 [place] % (Auto) 6.6 % 04/04/25 18:05 Eos % (Auto) 1.4 % 04/04/25 18:05 Baso % (Auto) 0.2 % 04/04/25 18:05 Neut # (Auto) 8.74 10^3/uL (1.8-7.7) H 04/04/25 18:05 Lymph # (Auto) 2.2 10^3/uL (0.8-4.8) 04/04/25 18:05 [place] # (Auto) 0.8 10^3/uL (0.2-0.9) 04/04/25 18:05 Eos # (Auto) 0.2 10^3/uL (0.0-0.8) 04/04/25 18:05 Baso # (Auto) 0.0 10^3/uL (0.0-0.1) 04/04/25 18:05 Nucleated RBC % (auto) 0 % 04/04/25 18:05 Nucleated RBCs # 0.0 /100WBC 04/04/25 18:05 Blood Type O Positive 04/03/25 05:17 Rho(D) Type Rh positive 04/03/25 05:17 Antibody Screen Negative 04/03/25 05:17 Crossmatch See Detail 04/03/25 05:17 Vitals Last Vital Signs Temp 97.9 F 04/04/25 16:00 Pulse 117 H 04/05/25 05:02 Resp 15 04/03/25 12:25 BP 118/68 04/05/25 05:02 Pulse Ox 81 L 04/04/25 01:21 O2 Del Method Oxymask 04/03/25 12:15 Results Labs OB ([facility]): Obstetrics US 08/17/24 Blood Type O Positive 04/03/25 Antibody Screen Negative 04/03/25 Hct, (36-47) 23.2 % L 04/04/25 Hgb, (11.27-16.99) 7.70 g/dL L 04/04/25 Rho(D) Type Rh positive 04/03/25 Plt Count, (157-399) 196 10^3/cmm 04/04/25 Ser , Semi-Qnt 90227.00 mIU/mL 09/14/24 Discharge Plan Discharge Patient Disposition: Home Condition: Stable Prescriptions: New ibuprofen 800 mg Tablet 800 mg PO TID Qty: 45 0RF hydrocodone-acetaminophen 5-325 mg Tablet 1 - 2 tab PO Q4H PRN (Reason: Moderate To Severe Pain) Qty: 28 0RF Continued 1 tab PO DAILY escitalopram oxalate 10 mg tablet 10 mg PO DAILY Discharge Orders: Discharge Order (Routine); Ordered 04/05/25 Ordered By: Aaron Hensley Referrals: Aaron Hensley MD [Primary Care Provider, [facility]] - 04/10/25 11:50 am Referral Note: Please have the patient have a CBC done prior to her appointment on the day of her appointment at [facility] Discharge Diet: Usual diet Discharge Activity: Resume usual activity Patient Instructions: Depression (DC), Bleeding (DC), Preeclampsia and Eclampsia After Delivery (GEN), Hemorrhage (DC), OB - Ayden/Fei, OB Discharge Report, OB Food/Drug Interaction Guide, Opioid Safety, OB Home Care, OB Proud Parent Packet, Patient Portal & [place] Instructions Discharge 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
[2025-04-05] MEDS: escitalopram 10 mg Tablet PO (08:41)
[2025-04-05] MEDS: ferrous sulfate EC 325 mg Tablet PO (08:41)
[2025-04-05] MEDS: docusate sodium 100 mg Capsule PO (08:41)
[2025-04-05] MEDS: PRENATAL VIT NO.130/IRON/FOLIC 1 EACH TABLET PO (08:41)
[2025-04-05] MEDS: ibuprofen 800 mg tablet PO (08:41)
[2025-04-05] MEDS: simethicone 80 mg Chew PO (08:44)
[2025-04-05] MEDS: measles,mumps,rubella pf Vial (w/diluent) 0.5 ML SUBCUT (09:30)
[2025-04-05 10:10] VITALS: BP 118/79; PULSE 102; RESP 17; TEMP 36.7; O2SAT 98
[2025-04-06 12:54] LABS: High Risk PP Hemorrhage BBK Notified
== END 2025-04-05 10:10 | disposition home or self-care (01) | DRG 784 ==
PROVIDERS: Admitting Provider Family Medicine; PCP Family Medicine; Visit Provider Family Medicine
PROC: 10D00Z1 Extraction of Products of Conception, Low, Open Approach (ICD-10-PCS; CPT 59514; principal; 2025-04-03 07:00)
DX: O34.211 Maternal care for low transverse scar from previous cesarean delivery (principal); O72.1 Other immediate postpartum hemorrhage; Z3A.39 39 weeks gestation of pregnancy; Z37.0 Single live birth; Z88.0 Allergy status to penicillin; Z30.2 Encounter for sterilization
CPT/HCPCS: 36415; 51702; 59025; 59409; 76705; 85025; 85027; 86850; 86900; 86920; 88302; 90707; 96372; 96374; 96376; J0330; J1885; J2250; J2274; J2371; J2405; J2704; J2765; J3010; J3490; J7030; J7040; J7120; J7121; J9999; P9016